=== PATIENT | female | born 1980 | race Caucasian/White ===

== ENCOUNTER → 2016-05-30 | Outpatient (CLI) | payer BC, OTHER ==
[~2016-05-30] MED LIST: ACET-1256 PO; ALBINS/ NEB; AMOX875T PO; CETI10TA10 PO; CHOL100010 PO; CHOL2000 PO; FERR325T PO; FLNIN/ INH; LEVO300T5 PO; LEVO50TA6 PO; MOME200A INH; OMEP20CA9 PO; PRED20TA PO; PRED50TA PO; SNG10 PO; TIOT1AER2 INH; VNTHFA/IN INH
[2016-05-30 17:50] LABS: BLOOD UREA NITROGEN 16 mg/dl (7-18); BUN/CREATININE RATIO 18.2 (10-20); CALCIUM 8.5 mg/dl (8.5-10.1); CARBON DIOXIDE 23 mmol/L (21-32); CHLORIDE 106 mmol/L (98-107); GLUCOSE 90 mg/dl (70-99); SODIUM 141 mmol/L (136-145)
== END | disposition home or self-care (01) ==
LOC: C.LABBFT 16:46
PROVIDERS: ATTEND Internal Medicine
DX: E03.9 Hypothyroidism, unspecified (principal)

== ENCOUNTER → 2016-06-20 | Outpatient (CLI) | payer BC, OTHER ==
[2016-06-20 13:52] LABS: FERRITIN 4.5 ng/ml (8.0-388.0)
[2016-06-27 23:42] LABS: IGA SERUM 277 mg/dL (81-463); TIS TRANS IGA 10 U/mL (<4)
[2016-06-30 09:23] LABS: ENDOMYSIAL IGA AB TC 15064 Negative (Negative)
== END | disposition home or self-care (01) ==
LOC: C.LAB1850 11:58
PROVIDERS: ATTEND Registered Nurse
DX: E03.9 Hypothyroidism, unspecified (principal); K90.0 Celiac disease

== ENCOUNTER → 2016-07-01 | Outpatient (CLI) | payer BC, OTHER ==
[2016-07-01 17:32] LABS: BASO % 0.4 %; BASO ABS # 0.04 K/uL (0-0.2); COMPLETE YES; EOS % 2.6 %; HEMATOCRIT 37.3 % (37-47); IG% 0.3 %; LYMPH % 31.3 %; LYMPH ABS # 3.24 K/uL (1.2-3.4); MEAN CORPUSCULAR HGB CONC 31.6 g/dl (32-36); MEAN PLATELET VOLUME 10.6 fL (7.4-10.4); MONO % 9.8 %; NEUT % 55.6 %; PLATELET COUNT 287 K/uL (130-400); RED BLOOD COUNT 4.72 M/uL (4.2-5.4); WHITE BLOOD COUNT 10.36 K/uL (4.8-10.8)
[2016-07-01 17:38] LABS: ALT/SGPT 22 U/L (12-78); AST/SGOT 8 U/L (15-37); BLOOD UREA NITROGEN 18 mg/dl (7-18); BUN/CREATININE RATIO 22.1 (10-20); CALCIUM 8.4 mg/dl (8.5-10.1); CARBON DIOXIDE 29 mmol/L (21-32); CHLORIDE 104 mmol/L (98-107); CREATININE 0.81 mg/dl (0.60-1.20); GLUCOSE 95 mg/dl (70-99); POTASSIUM 3.8 mmol/L (3.5-5.1); SODIUM 140 mmol/L (136-145)
[2016-07-01 17:47] LABS: URINE APPEARANCE CLEAR (CLEAR); URINE BILIRUBIN NEG (NEG); URINE COLOR YELLOW; URINE EPITHELIAL CELL AUTO 20-30 /lpf (0-5); URINE NITRITE NEG (NEG); URINE SPECIFIC GRAVITY 1.021 (1.000-1.030); UROBILINOGEN NEG (NEG); ZZUR CULT IF INDIC CLEAN CATCH NO
[2016-07-01 17:48] LABS: ALB/GLOB RATIO 0.8 (0.9-2); ALKALINE PHOSPHATASE 76 U/L (45-117)
[2016-07-01 17:49] LABS: MANUAL MICROSCOPIC REQUIRED? NO; REVIEW REQ? NO
== END | disposition home or self-care (01) ==
LOC: C.LABBFT 14:55
PROVIDERS: ATTEND Internal Medicine
DX: E03.9 Hypothyroidism, unspecified (principal); I10 Essential (primary) hypertension; R60.9 Edema, unspecified

== ENCOUNTER → 2016-08-07 | Outpatient (CLI) | payer BC, OTHER ==
[~2016-08-07] MED LIST changes: +FERR1TAB62 PO; -FERR325T PO; +LEVO300T31 PO; -LEVO300T5 PO
== END | disposition home or self-care (01) ==
LOC: C.PAPS 16:29
PROVIDERS: ATTEND Physician Assistant
DX: Z01.419 Encounter for gynecological examination (general) (routine) without abnormal findings (principal)

== ENCOUNTER → 2016-09-19 | Outpatient (CLI) | payer BC, OTHER ==
[2016-09-19 17:58] LABS: URINE APPEARANCE TURBID (CLEAR); URINE COLOR DK YELLOW; URINE EPITHELIAL CELL AUTO >30 /lpf (0-5); URINE NITRITE NEG (NEG); URINE PH 5.5 (4.5-7.5); URINE SPECIFIC GRAVITY 1.038 (1.000-1.030); UROBILINOGEN NEG (NEG)
[2016-09-19 18:18] LABS: MANUAL MICROSCOPIC REQUIRED? NO; REVIEW REQ? NO
[2016-09-19 18:20] LABS: URINE BILIRUBIN NEG (NEG)
== END | disposition home or self-care (01) ==
LOC: C.LABSPEC 17:22
PROVIDERS: ATTEND Physician Assistant
DX: R30.0 Dysuria (principal); N89.8 Other specified noninflammatory disorders of vagina

== ENCOUNTER → 2016-10-28 | Outpatient (CLI) | payer OTHER ==
[~2016-10-28] MED LIST changes: -AMOX875T PO; -CHOL2000 PO; -FERR1TAB62 PO; +FERR325T PO; -LEVO300T31 PO; +LEVO300T5 PO; -PRED50TA PO
[2016-10-28 19:18] LABS: URINE APPEARANCE CLEAR (CLEAR); URINE BILIRUBIN NEG (NEG); URINE COLOR YELLOW; URINE NITRITE NEG (NEG); URINE PH 6.5 (4.5-7.5); URINE SPECIFIC GRAVITY 1.013 (1.000-1.030); UROBILINOGEN NEG (NEG)
[2016-10-28 19:31] LABS: MANUAL MICROSCOPIC REQUIRED? NO; REVIEW REQ? NO
[2016-10-31 02:02] LABS: CHLAMYDIA TRACH RNA*** NOT DETECTED (NOT DETECTED); GC (NEIS GONORRHOEAE)RNA** NOT DETECTED (NOT DETECTED)
== END | disposition home or self-care (01) ==
LOC: C.LABBFT 10:35
PROVIDERS: ATTEND Physician Assistant Medical
DX: N76.0 Acute vaginitis (principal); R10.9 Unspecified abdominal pain

== ENCOUNTER → 2016-10-29 | Day surgery (SDC) | payer BC, OTHER ==
[~2016-10-29] VITALS: Ht 170.2 cm; Wt 157.7 kg
[~2016-10-29] MED LIST changes: +AMOX875T PO; +CHOL2000 PO; +FERR1TAB62 PO; -FERR325T PO; +LEVO300T31 PO; -LEVO300T5 PO; +LIDOCAINE HCL 2% 2 ML VIAL (20MG/ML) ONE; +PHENYLEPHRINE 100MCG/ML 5ML SYR ONE; +PRED50TA PO; +PROPOFOL IV EMULSION 10 MG/ML 20 ML VIAL IV ONE; +SODIUM CHLORIDE 0.9% 500ML 500 ML IV ONE
[2016-10-29 15:19] VITALS: Ht 170.2 cm; Wt 157.7 kg
--- NOTE | 2016-10-29 16:05 | Endo History and Physical ---
History & Physical Date of Service: Oct 29, 2016. Chief Complaint: Abdominal pain, family history of colon cancer (sister) Referring Physician: Ketty Ballard History of Present Illness 36 yo CF who presents for Colonoscopy secondary to family history of colon cancer (sister age 27). Past Medical History Asthma, Gastrointestinal Disorder, Reflux, High Cholesterol, Thyroid Disease, Other Past Surgical History Hx Cardiac Surgery: No Hx Internal Defibrillator: No Hx Pacemaker: No Hx Abdominal Surgery: Yes (gallbladder) Hx of Implantable Prosthesis: No Hx Post-Op Nausea and Vomiting: Yes Hx Cancer Surgery: No Hx Thoracic Surgery: No Hx Orthopedic: Yes (right wrist cyst removed) Hx Urinary Tract Surgery: No Family History Colon CA Social History Smoking Status: Former Smoker Hx Substance Use: No Hx Alcohol Use: Yes (holidays) Allergies Coded Allergies: Aspirin (Verified Allergy, Severe, ASTHMA ATTACK, 10/29/16) Ibuprofen (Verified Allergy, Severe, ASTHMA ATTACK, 10/29/16) Levofloxacin (Verified Allergy, Intermediate, body aches and pain, 10/29/16 ) Prochlorperazine (Verified Allergy, Intermediate, Agitated, itchy, hot, ) Tramadol (Verified Adverse Reaction, Unknown, Nausea/Vomiting, 10/29/16) Reported by PT. Current Medications Reported Home Medications Medications Dose Route/Sig Max Daily Dose Days Date Category Dose Instructions Prednisone 20 Mg Tab 20 Mg PO DIRECTED 04/13/16 Reported pt on tapering dose of prednisone presently today and tomorrow to take 20mg then decrease amt to 10mg Prilosec (Omeprazole) 20 Mg Cap 20 Mg PO QAM 04/05/16 Reported Montelukast Sodium (Montelukast Sod) 10 Mg Tab 10 Mg PO HS 04/05/16 Reported Levothyroxine Sodium 50 Mcg Tab 50 Mcg PO QAM 04/05/16 Reported Zyrtec (Cetirizine Hcl) 10 Mg Tab 10 Mg PO QAM 04/05/16 Reported Fluticasone Propionate 120 Sprays/6000 Mcg Inha 2 Sprays INH BID 04/05/16 Reported Spiriva Respimat (Tiotropium [place]) 1.25 Mcg/Act Aer 1 Puff INH DAILY 04/05/16 Reported Proventil 0.083% 2.5MG/3ML (Albuterol Sulf) 2.5 Mg/3 Ml Nebu 3 Ml NEB QID PRN 04/05/16 Reported Ventolin Hfa (Albuterol) 200 Puffs/09012 Mcg Aers 2 Puffs INH QID PRN 04/05/16 Reported Dulera 200/5 Mcg (Mometasone Furoate-Formoterol) 1 Aer Aer 2 Puff INH BID 04/05/16 Reported Vitamin D (Cholecalciferol) 1,000 Inter.unit Tab 2,000 Inter.unit PO DAILY 07/26/15 Reported Tylenol (Acetaminophen) 500 Mg Tab 1,000 Mg PO Q4H PRN 03/25/14 Reported Ferrous Sulfate 325 Mg Tab 325 Mg PO QPM 10/12/13 Reported Levothyroxine Sodium 300 Mcg Tab 300 Mcg PO QAM 02/18/13 Reported Vital Signs Weight (Kilograms): 157.73 Height (Feet): 5 Height (Inches): 7 Date Time Temp Pulse Resp B/P (MAP) Pulse Ox O2 Delivery O2 Flow Rate FiO2 10/29/16 15:40 36.8 85 20 140/76 (97) 96 Room Air Physical Exam General Appearance: WD/WN, no apparent distress Respiratory/Chest: Auscultation: breath sounds normal Cardiovascular: Heart Auscultation: RRR Abdomen: Bowel Sounds: normal Inspection & Palpation: soft, non-distended, no tenderness, guarding & rebound Assessment and Plan Assessment: 36 yo CF who presents for Colonoscopy secondary to family history of colon cancer (sister age 27). Plan: Proceed with colonoscopy.
--- NOTE | 2016-10-29 16:22 | Discharge Instructions ---
Endoscopy Patient Instructions Date / Procedure(s) Performed Oct 29, 2016. Colonoscopy Allergy Information Coded Allergies: Aspirin (Verified Allergy, Severe, ASTHMA ATTACK, 10/29/16) Ibuprofen (Verified Allergy, Severe, ASTHMA ATTACK, 10/29/16) Levofloxacin (Verified Allergy, Intermediate, body aches and pain, 10/29/16 ) Prochlorperazine (Verified Allergy, Intermediate, Agitated, itchy, hot, ) Tramadol (Verified Adverse Reaction, Unknown, Nausea/Vomiting, 10/29/16) Reported by PT. Discharge Date / Findings Oct 29, 2016. Colon polyp Diverticulosis Internal hemorrhoids Medication Instructions OK to resume all medications today as prescribed Reported Home Medications Medications Dose Route/Sig Max Daily Dose Days Date Category Dose Instructions Prednisone 20 Mg Tab 20 Mg PO DIRECTED 04/13/16 Reported pt on tapering dose of prednisone presently today and tomorrow to take 20mg then decrease amt to 10mg Prilosec (Omeprazole) 20 Mg Cap 20 Mg PO QAM 04/05/16 Reported Montelukast Sodium (Montelukast Sod) 10 Mg Tab 10 Mg PO HS 04/05/16 Reported Levothyroxine Sodium 50 Mcg Tab 50 Mcg PO QAM 04/05/16 Reported Zyrtec (Cetirizine Hcl) 10 Mg Tab 10 Mg PO QAM 04/05/16 Reported Fluticasone Propionate 120 Sprays/6000 Mcg Inha 2 Sprays INH BID 04/05/16 Reported Spiriva Respimat (Tiotropium [place]) 1.25 Mcg/Act Aer 1 Puff INH DAILY 04/05/16 Reported Proventil 0.083% 2.5MG/3ML (Albuterol Sulf) 2.5 Mg/3 Ml Nebu 3 Ml NEB QID PRN 04/05/16 Reported Ventolin Hfa (Albuterol) 200 Puffs/50503 Mcg Aers 2 Puffs INH QID PRN 04/05/16 Reported Dulera 200/5 Mcg (Mometasone Furoate-Formoterol) 1 Aer Aer 2 Puff INH BID 04/05/16 Reported Vitamin D (Cholecalciferol) 1,000 Inter.unit Tab 2,000 Inter.unit PO DAILY 07/26/15 Reported Tylenol (Acetaminophen) 500 Mg Tab 1,000 Mg PO Q4H PRN 03/25/14 Reported Ferrous Sulfate 325 Mg Tab 325 Mg PO QPM 10/12/13 Reported Levothyroxine Sodium 300 Mcg Tab 300 Mcg PO QAM 02/18/13 Reported Provider Instructions Activity Restrictions - No exercising or heavy lifting for 24 hours. - Do not drink alcohol the day of the procedure. - Do not drive a car or operate machinery until the day after the procedure. - Do not make any important decisions or sign important papers in 24 hours after the procedure. Following Day: - Return to full activity which may include returning to work/school. Diet Start your diet with liquids and light foods (jello, soup, juice, toast). Then eat your usual diet if not nauseated. Treatment For Common After Affects For mild abdominal pain, bloating, or excessive gas: - Rest - Eat lightly - Lie on right side Follow-Up Information Follow-up with Ketty Ballard as scheduled Anesthesia Information What You Should Know You have had a procedure that required some medicine to reduce anxiety and discomfort. This treatment is called moderate sedation. After receiving the treatment, you may be sleepy, but you will be able to breathe on your own. The effects of the treatment may last for several hours. Follow these instructions along with Activity/Diet recommendations noted above: * Do NOT do anything where dizziness or clumsiness would be dangerous. * Rest quietly at home today, then you can be up and about tomorrow. * Have a responsible person stay with you the rest of today. * You may have had an I.V. today. If so, you may take the dressing off later today. Recommendations Call your doctor if: * Trouble breathing * Continuous vomiting for more than 24 hours * Temperature above 101 degrees * Severe abdominal pain or bloating * Pain not relieved by pain medicine ordered * There is increased drainage or redness from any incision * A large amount of rectal bleeding greater than 2-3 tablespoons. (If you had a polyp/s removed or have hemorrhoids, a small amount of blood - from the rectum is to be expected.) * You have any unanswered questions or concerns. IN THE EVENT OF A SERIOUS EMERGENCY, GO TO THE NEAREST EMERGENCY ROOM Your discharge instructions were prepared by provider Zion Alvarado. Patient Instructions Signature Page Mustapha Mcnally Patient (or Guardian) Signature/Date: I have read and understand the instructions given to me by my caregivers. Caregiver/RN/Doctor Signature/Date: The above-named patient and/or guardian has received patient instructions on this date. + Original Patient Signature Page (only) stays with chart. Please make copy for patient.
--- NOTE | 2016-10-29 16:25 | GI REPORT ---
Procedure Date: 10/29/2016 3:55 PM Procedure: Colonoscopy Indications: Family history of colon cancer in a first-degree relative Medicines: Monitored Anesthesia Care Complications: No immediate complications. Estimated Blood Loss: Estimated blood loss: none. Procedure: Pre-Anesthesia Assessment: - Prior to the procedure, a History and Physical was performed, and patient medications and allergies were reviewed. The patient's tolerance of previous anesthesia was also reviewed. The risks and benefits of the procedure and the sedation options and risks were discussed with the patient. All questions were answered, and informed consent was obtained. Prior Anticoagulants: The patient has taken no previous anticoagulant or antiplatelet agents. ASA Grade Assessment: II - A patient with mild systemic disease. After reviewing the risks and benefits, the patient was deemed in satisfactory condition to undergo the procedure. After I obtained informed consent, the scope was passed under direct vision. Throughout the procedure, the patient's blood pressure, pulse, and oxygen saturations were monitored continuously. The Scope was introduced through the anus and advanced to the terminal ileum. The colonoscopy was performed without difficulty. The patient tolerated the procedure well. The quality of the bowel preparation was good. The terminal ileum, ileocecal valve, appendiceal orifice, and rectum were photographed. Findings: A 5 mm polyp was found in the sigmoid colon. The polyp was sessile. The polyp was removed with a hot snare. Resection and retrieval were complete. Multiple small-mouthed diverticula were found in the sigmoid colon. Non-bleeding internal hemorrhoids were found during retroflexion. The hemorrhoids were small. Impression: - One 5 mm polyp in the sigmoid colon, removed with a hot snare. Resected and retrieved. - Diverticulosis in the sigmoid colon. - Non-bleeding internal hemorrhoids. Recommendation: - Resume previous diet. - Continue present medications. - Repeat colonoscopy for surveillance based on pathology results. - Return to primary care physician as previously scheduled. Zion Alvarado DO 10/29/2016 4:24:53 PM This report has been signed electronically. Note Initiated On: 10/29/2016 3:55 PM I attest to the content of the Intraoperative Record and orders documented therein, exceptions below
[2016-10-29 16:53] VITALS: BP 138/71; PULSE 69; O2SAT 100
--- NOTE | 2016-10-29 16:57 | Anesthesiology Progress Note ---
Anesthesia Post Op Note Date & Time Oct 29, 2016 at 16:56 Vital Signs Pain Intensity: 0 Vital Signs Past 12 Hours Date Time Temp Pulse Resp B/P (MAP) Pulse Ox O2 Delivery O2 Flow Rate FiO2 10/29/16 16:53 69 16 138/71 (93) 100 Room Air 10/29/16 16:38 82 16 113/76 (88) 99 Room Air 10/29/16 16:23 79 16 103/45 (64) 98 Room Air 10/29/16 15:40 36.8 85 20 140/76 (97) 96 Room Air Notes Mental Status: alert / awake / arousable, participated in evaluation Pt Amnestic to Procedure: Yes Nausea / Vomiting: adequately controlled Pain: adequately controlled Airway Patency, RR, SpO2: stable & adequate BP & HR: stable & adequate Hydration State: stable & adequate Anesthetic Complications: no major complications apparent
== END | disposition home or self-care (01) ==
LOC: C.GI 15:03
PROVIDERS: ATTEND Internal Medicine
DX: Z12.11 Encounter for screening for malignant neoplasm of colon (principal); D12.5 Benign neoplasm of sigmoid colon; K57.30 Diverticulosis of large intestine without perforation or abscess without bleeding; K64.8 Other hemorrhoids; Z80.0 Family history of malignant neoplasm of digestive organs; E78.00 Pure hypercholesterolemia, unspecified; K21.9 Gastro-esophageal reflux disease without esophagitis; J45.909 Unspecified asthma, uncomplicated; E07.9 Disorder of thyroid, unspecified; Z87.891 Personal history of nicotine dependence; Z79.899 Other long term (current) drug therapy

== ENCOUNTER 2016-11-09 20:05 | Emergency (ER) | payer OTHER ==
[~2016-11-09] VITALS: Ht 170.2 cm; Wt 158.6 kg
[~2016-11-09 20:05] MED LIST changes: -AMOX875T PO; -CHOL2000 PO; -FERR1TAB62 PO; +FERR325T PO; -LEVO300T31 PO; +LEVO300T5 PO; -LIDOCAINE HCL 2% 2 ML VIAL (20MG/ML) ONE; -PHENYLEPHRINE 100MCG/ML 5ML SYR ONE; -PRED50TA PO; -PROPOFOL IV EMULSION 10 MG/ML 20 ML VIAL IV ONE; -SODIUM CHLORIDE 0.9% 500ML 500 ML IV ONE
[2016-11-09 20:07] VITALS: TEMP 36.7; Ht 170.2 cm; Wt 158.6 kg
[2016-11-09] MEDS ORDERED: SODIUM CHLORIDE 0.9% 1000ML 500 ML IV STA (20:31)
[2016-11-09] MEDS ORDERED: CHOL2000 PO (20:40)
--- NOTE | 2016-11-09 20:45 | EMERGENCY ROOM VISIT NOTE ---
History Report prepared by Carlitos: José Manuel Lara Under the Supervision of: Dr. Mynor Otero M.D. First contact with patient: 20:25 Chief Complaint: CHEST PAIN Stated Complaint: PAIN AND TIGHTENING IN CHEST Nursing Triage Summary: patient c/o left sided chest discomfort since yesterday that radiates towards her neck. patient states she has a hx of GERD and took tums yesterday but chest pain was not relieved. History of Present Illness The patient is a 36 year old female who presents to the Emergency Room with complaints of waxing and waning chest pain beginning 8.5 hours ago. Her pain radiates into her neck and she rates it as a 5/10 in severity. Her pain is worsened with physical activity. The patient has no history of blood clots. She has a history of GERD, but states that her current symptoms feel somewhat different. She notes that she had had a pain in her right calf that has radiated upward to the back of her knee beginning a month ago. The patient also complains of heart palpitations. She drove to [place] last week, but otherwise denies any recent long travel by car or plane. Source of History: patient Onset: 8.5 hours ago Position: chest Symptom Intensity: 5/10 Timing: waxes/wanes Modifying Factors (Worsening): other (physical activity) Note: The patient also complains of heart palpitations and pain radiating into her neck. Review of Systems See HPI for pertinent positives & negatives. A total of 10 systems reviewed and were otherwise negative. Past Medical & Surgical Medical Problems: (1) Acute abdominal pain (2) Acute abdominal pain (3) Acute sinusitis (4) Asthma (5) Asthma exacerbation (6) Asthma exacerbation (7) Cellulitis of scalp (8) Chest pain, non-cardiac (9) Cholecystectomy (10) Folliculitis (11) Foreign body of fourth finger, right (12) Gastritis (13) Gastritis (14) H. pylori infection (15) Headache (16) Headache (17) Hypothyroidism (18) Insect bite (19) Leg pain, right (20) Lower extremity pain, right (21) MORBID OBESITY (22) Musculoskeletal pain (23) Non-cardiac chest pain (24) Occipital lymphadenitis (25) Pansinusitis (26) Right leg pain (27) sinus surgery (28) Sinusitis (29) Sinusitis (30) Vomiting and diarrhea Family History Diabetes mellitus FHx: cancer FHx: gallbladder disease Hypertension Kidney disease Social History Smoking Status: Never Smoker Alcohol Use: none Drug Use: none Marital Status: Housing Status: lives with family Occupation Status: employed Current/Historical Medications Scheduled Cetirizine Hcl (Zyrtec), 10 MG PO QAM Cholecalciferol (Vitamin D3), 2,000 CAP PO DAILY Ferrous Sulfate (Ferrous Sulfate), 325 MG PO QPM Fluticasone Propionate (Fluticasone Propionate), 2 SPRAYS INH BID Levothyroxine Sodium (Levothyroxine Sodium), 300 MCG PO QAM Levothyroxine Sodium (Levothyroxine Sodium), 50 MCG PO QAM Mometasone Furoate-Formoterol (Dulera 200/5 Mcg), 2 PUFF INH BID Montelukast Sod (Montelukast Sodium), 10 MG PO HS Omeprazole (Prilosec), 20 MG PO QAM Tiotropium [place] (Spiriva Respimat), 1 PUFF INH DAILY Scheduled PRN Acetaminophen (Tylenol), 1,000 MG PO Q4H PRN for Pain or Fever Albuterol Hfa (Ventolin Hfa), 2 PUFFS INH QID PRN for Asthma Symptoms Albuterol Sulf (Proventil 0.083% 2.5MG/3ML), 3 ML NEB QID PRN for SOB/Wheezing Allergies Coded Allergies: Aspirin (Verified Allergy, Severe, ASTHMA ATTACK, 11/09/16) Ibuprofen (Verified Allergy, Severe, ASTHMA ATTACK, 11/09/16) Levofloxacin (Verified Allergy, Intermediate, body aches and pain, 11/09/16) Prochlorperazine (Verified Allergy, Intermediate, Agitated, itchy, hot, 11/09/16) Tramadol (Verified Adverse Reaction, Unknown, Nausea/Vomiting, 11/09/16) Reported by PT. Physical Exam Vital Signs Date Time Temp Pulse Resp B/P (MAP) Pulse Ox O2 Delivery O2 Flow Rate FiO2 11/09/16 22:19 78 20 134/70 99 11/09/16 21:30 65 20 134/67 98 Room Air 11/09/16 20:40 73 11/09/16 20:17 Room Air 11/09/16 20:07 36.7 71 20 152/91 98 Room Air Physical Exam GENERAL: Patient is in no acute distress. HEENT: No acute trauma, normocephalic atraumatic, mucous membranes moist, no nasal congestion, no scleral icterus. NECK: No stridor, no adenopathy, no meningismus, trachea is midline. LUNGS: Clear to auscultation bilaterally, no wheeze, no rhonchi, breath sounds equal. HEART: Without murmurs gallops or rubs, regular rate and rhythm. CHEST: Very mildly tender to the left chest-wall. ABDOMEN: Soft, nontender, bowel sounds positive, no hernias, no peritonitis. EXTREMITIES: No cyanosis or edema, full range of motion of all the joints without pain or difficulty, no signs for acute trauma. NEUROLOGIC: Oriented x 3, no acute motor or sensory deficits, no focal weakness. SKIN: No rash, no jaundice, no diaphoresis. Medical Decision & Procedures ER Provider Diagnostic Interpretation: Radiology results as stated below per my review and radiologist interpretation: SINGLE VIEW CHEST FINDINGS: An AP, portable, upright chest radiograph is compared to study dated 01/19/2016. The examination is degraded by portable technique and large body habitus. The cardiomediastinal silhouette is unremarkable. The lungs and pleural spaces are clear. No pneumothorax is seen. The bony thorax is grossly intact. IMPRESSION: No active disease in the chest. Electronically signed by: Mynor Pinto M.D. ULTRASOUND RIGHT LOWER EXTREMITY VENOUS FINDINGS: There is no sonographic evidence of deep venous thrombosis identified in the right lower extremity. The common femoral, superficial femoral, and popliteal veins are patent and normally compressible. The greater saphenous vein and the profunda femoris vein at the junction with the common femoral vein are clear. The visualized calf veins are patent. IMPRESSION: There is no sonographic evidence of deep venous thrombosis identified in the right lower extremity. Electronically signed by: Mynor Pinto M.D. Laboratory Results 11/09/16 20:30 11/09/16 20:30 Test 11/09/16 20:30 11/09/16 20:38 Red Blood Count 4.66 M/uL (4.2-5.4) Mean Corpuscular Volume 76.4 fL (80-100) Mean Corpuscular Hemoglobin 24.2 pg (25-34) Mean Corpuscular Hemoglobin Concent 31.7 g/dl (32-36) RDW Standard Deviation 42.4 fL (36.4-46.3) RDW Coefficient of Variation 15.2 % (11.5-14.5) Mean Platelet Volume 10.6 fL (7.4-10.4) Anion Gap 8.0 mmol/L (3-11) Est Creatinine Clear Calc Drug Dose 141.2 ml/min Estimated GFR () 98.0 Estimated GFR (Non- 84.6 BUN/Creatinine Ratio 16.7 (10-20) Calcium Level 8.6 mg/dl (8.5-10.1) Troponin I < 0.015 ng/ml (0-0.045) Bedside D-Dimer 310 ng/mlFEU (0-450) Laboratory results reviewed by me. Medications Administered Medications (Trade) Dose Ordered Sig/Zaida Route Start Time Stop Time Status Last Admin Dose Admin Sodium Chloride 500 ml @ 999 mls/hr Q31M STAT IV 11/09/16 20:31 11/09/16 21:01 DC 11/09/16 20:31 999 MLS/HR Ranitidine HCl (zANTac TAB) 150 mg NOW ONCE PO 11/09/16 21:45 11/09/16 21:46 DC 11/09/16 21:42 150 MG Morphine Sulfate (MoRPHine SULFATE INJ) 4 mg NOW STAT IV 11/09/16 21:34 11/09/16 21:36 DC 11/09/16 21:34 4 MG Al Hydroxide/Mg Hydroxide (Maalox Susp) 30 ml STK-MED ONCE .ROUTE 11/09/16 21:38 11/09/16 21:39 DC 11/09/16 21:38 30 ML Lidocaine HCl (Viscous Lidocaine 2% Soln) 20 ml STK-MED ONCE .ROUTE 11/09/16 21:38 11/09/16 21:39 DC 11/09/16 21:38 20 ML ECG Indication: chest pain Rate (beats per minute): 62 Rhythm: normal sinus Findings: no acute ischemic change, no ectopy ED Course 2025: The patient was evaluated in room B4B. A complete history and physical exam was performed. 2030: Ordered Sodium Chloride 500 ml @ 999 mls/hr IV. 2133: Ordered Morphine Sulfate 4 mg IV, GI Cocktail 24 mL PO. 2144: Ordered Zantac Tab 150 mg PO. 2210: Reevaluated the patient. Discussed results and discharge instructions: she verbalized understanding and agreement. The patient is ready for discharge. Medical Decision The patient is a 36 year old female who presents to the ED with complaints of chest pain. Differential diagnoses considered include musculoskeletal pain, PE , aortic dissection, pneumothorax, pneumonia, and [place]. There is no leukocytosis or concerning anemia. No significant electrolyte abnormality or kidney failure. EKG shows a sinus rhythm, there is no acute ischemia. Cardiac enzyme testing times one is not consistent with acute cardiac injury. Chest x-ray shows no pneumonia, mediastinal widening or pneumothorax. D-dimer testing was negative. With a negative d-dimer and my low suspicion for PE, I will stop the workup for this diagnosis. Right leg ultrasound did not show evidence for DVT. The patient presents with some left-sided chest pain and right leg pain. She did have some mild discomfort with palpation across the left chest wall. Workup here is unrevealing. I suspect the pain is musculoskeletal. The patient was given medication for reflux, she has a long history of reflux. She was given a GI cocktail and oral Zantac. She received IV morphine for pain control. The patient was discharged. She can use heat to the chest wall. If she worsens or becomes short of breath, she can return. Tylenol was suggested for pain control. Impression Primary Impression: Left sided chest pain Scribe Attestation The scribe's documentation has been prepared under my direction and personally reviewed by me in its entirety. I confirm that the note above accurately reflects all work, treatment, procedures, and medical decision making performed by me. Departure Information Dispostion Home / Self-Care Referrals Ketty Ballard M.D. (PCP) Forms HOME CARE DOCUMENTATION FORM, IMPORTANT VISIT INFORMATION Patient Instructions My [facility] Additional Instructions heat to the sore area may help continue reflux meds--may add zantac for additional relief tylenol for pain rest return if worsening testing of the heart and lungs today was ok no clot by ultrasound or lab work
[2016-11-09 20:47] LABS: HEMATOCRIT 35.6 % (37-47); MEAN CELL VOLUME 76.4 fL (80-100); MEAN CORPUSCULAR HEMOGLOBIN 24.2 pg (25-34); MEAN CORPUSCULAR HGB CONC 31.7 g/dl (32-36); MEAN PLATELET VOLUME 10.6 fL (7.4-10.4); PLATELET COUNT 282 K/uL (130-400); RED BLOOD COUNT 4.66 M/uL (4.2-5.4); WHITE BLOOD COUNT 9.35 K/uL (4.8-10.8)
--- NOTE | 2016-11-09 20:53 | DIAGNOSTIC IMAGING REPORT ---
SINGLE VIEW CHEST CLINICAL HISTORY: Atypical chest pain. FINDINGS: An AP, portable, upright chest radiograph is compared to study dated 01/19/2016. The examination is degraded by portable technique and large body habitus. The cardiomediastinal silhouette is unremarkable. The lungs and pleural spaces are clear. No pneumothorax is seen. The bony thorax is grossly intact. IMPRESSION: No active disease in the chest. Electronically signed by: Mynor Pinto M.D. 11/09/2016 8:51 PM Dictated Date/Time: 11/09/2016 8:51 PM
[2016-11-09 21:10] LABS: BLOOD UREA NITROGEN 15 mg/dl (7-18); BUN/CREATININE RATIO 16.7 (10-20); CALCIUM 8.6 mg/dl (8.5-10.1); CARBON DIOXIDE 26 mmol/L (21-32); CHLORIDE 107 mmol/L (98-107); CREATININE 0.89 mg/dl (0.60-1.20); GLUCOSE 112 mg/dl (70-99); POTASSIUM 3.9 mmol/L (3.5-5.1); SODIUM 141 mmol/L (136-145)
--- NOTE | 2016-11-09 21:17 | DIAGNOSTIC IMAGING REPORT ---
ULTRASOUND RIGHT LOWER EXTREMITY VENOUS CLINICAL HISTORY: Right calf pain. COMPARISON STUDY: Right lower extremity venous ultrasound dated 07/26/2015. TECHNIQUE: Real-time, grayscale, and color Doppler sonography of the deep veins of the right lower extremity was performed from the inguinal crease to the calf. Compression and augmentation were utilized. FINDINGS: There is no sonographic evidence of deep venous thrombosis identified in the right lower extremity. The common femoral, superficial femoral, and popliteal veins are patent and normally compressible. The greater saphenous vein and the profunda femoris vein at the junction with the common femoral vein are clear. The visualized calf veins are patent. IMPRESSION: There is no sonographic evidence of deep venous thrombosis identified in the right lower extremity. Electronically signed by: Mynor Pinto M.D. 11/09/2016 9:15 PM Dictated Date/Time: 11/09/2016 9:15 PM
[2016-11-09] MEDS ORDERED: GI COCKTAIL PO STA (21:34)
[2016-11-09] MEDS ORDERED: MoRPHine SULFATE 4 MG/ML 1 ML CARP\\VIAL IV STA (21:34)
[2016-11-09] MEDS ORDERED: LIDOCAINE HCL 2% VISC SOLN 20 ML UDC ONE (21:38)
[2016-11-09] MEDS ORDERED: ALUMINUM/MAGNESIUM SUSP 30 ML UDC ONE (21:38)
[2016-11-09] MEDS ORDERED: RANITIDINE HCL 150 MG TAB PO ONE (21:45)
[2016-11-09 22:19] VITALS: BP 134/70; PULSE 78; O2SAT 99
== END 2016-11-09 22:20 | disposition home or self-care (01) ==
LOC: C.EDB 20:06
DX: R07.9 Chest pain, unspecified (principal); K21.9 Gastro-esophageal reflux disease without esophagitis; R00.2 Palpitations; J45.909 Unspecified asthma, uncomplicated; E03.9 Hypothyroidism, unspecified; E66.01 Morbid (severe) obesity due to excess calories; Z83.3 Family history of diabetes mellitus; Z82.49 Family history of ischemic heart disease and other diseases of the circulatory system

== ENCOUNTER 2016-11-26 22:02 | Emergency (ER) | payer OTHER ==
[~2016-11-26] VITALS: Ht 170.2 cm; Wt 146.6 kg
[~2016-11-26 22:02] MED LIST changes: -CHOL100010 PO; +CHOL2000 PO; -PRED20TA PO
[2016-11-26 22:04] VITALS: TEMP 36.7; Ht 170.2 cm; Wt 146.6 kg
[2016-11-26] MEDS ORDERED: ALBUT/IPRATROP 3MG/0.5MG NEB 3 ML VIAL INH STA (22:12)
[2016-11-26] MEDS ORDERED: PSEUDOEPHEDRINE HCL 30 MG TAB PO STA (22:15)
[2016-11-26] MEDS ORDERED: DEXAMETHASONE SOD INJ 10 MG/ML VIAL PO ONE (22:15)
--- NOTE | 2016-11-26 22:35 | DIAGNOSTIC IMAGING REPORT ---
CHEST 2 VIEWS ROUTINE CLINICAL HISTORY: Cough. Wheeze. COMPARISON STUDY: Chest radiograph November 19, 2016. FINDINGS: There is no pneumothorax or pleural effusion. Opacity within the medial right lung base is unchanged and likely reflects mediastinal fat. There is no evidence of pulmonary edema. No consolidation is present. The appearance of the chest is unchanged. IMPRESSION: No acute cardiopulmonary findings. Electronically signed by: Darren Ballard M.D. 11/26/2016 10:34 PM Dictated Date/Time: 11/26/2016 10:32 PM
[2016-11-26 22:43] VITALS: O2SAT 99
[2016-11-26] MEDS ORDERED: AMOXICIL/CLAVU 875MG HOME PACK PO ONE (22:45)
--- NOTE | 2016-11-26 22:46 | EMERGENCY ROOM VISIT NOTE ---
History First contact with patient: 22:07 Chief Complaint: COUGH Stated Complaint: PAIN IN CHEST FROM COUGHING,HEADACHE History of Present Illness The patient is a 36 year old female who presents to the Emergency Room with complaints of productive cough with yellow-green sputum, yellow-green rhinorrhea and sinus pain and congestion for the past several days. Patient states when she coughs she has pain in her lower rib cages. Patient states the pain is not constant. Patient states this is completely different from her last ER visit for chest pain a few weeks ago. Patient states the symptoms did resolve. Patient states she feels ill again like she is getting another sinus infection or bronchitis. Patient tried her inhaler and this did not help. Patient complains of subjective fever and chills but no temperature was taken. Patient denies chest pain, dyspnea, abdominal pain, neck stiffness, vomiting, diarrhea. She is tolerate by mouth fluids and food. Review of Systems See HPI for pertinent positives & negatives. A total of 10 systems reviewed and were otherwise negative. Past Medical/Surgical History Medical Problems: (1) Acute abdominal pain (2) Acute abdominal pain (3) Acute sinusitis (4) Asthma (5) Asthma exacerbation (6) Asthma exacerbation (7) Cellulitis of scalp (8) Chest pain, non-cardiac (9) Cholecystectomy (10) Folliculitis (11) Foreign body of fourth finger, right (12) Gastritis (13) Gastritis (14) H. pylori infection (15) Headache (16) Headache (17) Hypothyroidism (18) Insect bite (19) Leg pain, right (20) Lower extremity pain, right (21) MORBID OBESITY (22) Musculoskeletal pain (23) Non-cardiac chest pain (24) Occipital lymphadenitis (25) Pansinusitis (26) Right leg pain (27) sinus surgery (28) Sinusitis (29) Sinusitis (30) Vomiting and diarrhea Family History Diabetes mellitus FHx: cancer FHx: gallbladder disease Hypertension Kidney disease Social History Smoking Status: Former Smoker Alcohol Use: none Drug Use: none Marital Status: Housing Status: lives with family Occupation Status: employed Current/Historical Medications Scheduled Cetirizine Hcl (Zyrtec), 10 MG PO QAM Cholecalciferol (Vitamin D3), 2,000 CAP PO DAILY Ferrous Sulfate (Ferrous Sulfate), 325 MG PO QPM Fluticasone Propionate (Fluticasone Propionate), 2 SPRAYS INH BID Levothyroxine Sodium (Levothyroxine Sodium), 300 MCG PO QAM Levothyroxine Sodium (Levothyroxine Sodium), 50 MCG PO QAM Mometasone Furoate-Formoterol (Dulera 200/5 Mcg), 2 PUFF INH BID Montelukast Sod (Montelukast Sodium), 10 MG PO HS Omeprazole (Prilosec), 20 MG PO QAM Tiotropium [place] (Spiriva Respimat), 1 PUFF INH DAILY Scheduled PRN Acetaminophen (Tylenol), 1,000 MG PO Q4H PRN for Pain or Fever Albuterol Hfa (Ventolin Hfa), 2 PUFFS INH QID PRN for Asthma Symptoms Albuterol Sulf (Proventil 0.083% 2.5MG/3ML), 3 ML NEB QID PRN for SOB/Wheezing Physical Exam Vital Signs Date Time Temp Pulse Resp B/P (MAP) Pulse Ox O2 Delivery O2 Flow Rate FiO2 11/26/16 22:43 99 Room Air 11/26/16 22:14 96 Room Air 11/26/16 22:04 36.7 81 18 128/81 99 Room Air Physical Exam VITALS: Vitals are noted on the nurse's note and reviewed by myself. Vital signs stable. GENERAL: White female coughing with audible wheeze, in no acute distress, nondiaphoretic, well-developed well-nourished. SKIN: The skin was without rashes, erythema, edema, or bruising. There is no tenting of the skin. Capillary reflex less than 2 seconds. HEAD: Normocephalic atraumatic. EARS: External auditory canals clear, tympanic membranes pearly riojas without erythema or effusion bilaterally. EYES: Pupils equal round and reactive to light and accommodation. Conjunctivae without injection, sclerae without icterus. Extraocular movements intact. NOSE: Patent, turbinates without inflammation or discharge. Bilateral maxillary sinus tenderness. MOUTH: Mucous membranes moist. Pharynx without erythema or exudate. Uvula midline. Airway patent. Tongue does not deviate. NECK: Supple without nuchal rigidity. No lymphadenopathy. No thyromegaly. Cervical spine is nontender. No JVD. HEART: Regular rate and rhythm without murmurs gallops or rubs. LUNGS: Mild diffuse end expiratory wheezes, without rales or rhonchi. No dullness to percussion. No retractions or accessory muscle use. ABDOMEN: Positive bowel sounds x 4. Normal tympanic percussion. Soft, nontender, without masses or organomegaly. Duenas sign negative. No guarding or rebound tenderness. MUSCULOSKELETAL: No muscle atrophy, erythema, or edema noted. NEURO: Patient was alert and oriented to person place and time. Normal sensation to light and sharp touch. No focal neurological deficits. Medical Decision & Procedures Medications Administered Medications (Trade) Dose Ordered Sig/Zaida Route Start Time Stop Time Status Last Admin Dose Admin Albuterol/ Ipratropium (Duoneb) 3 ml NOW STAT INH 11/26/16 22:12 11/26/16 22:14 DC 11/26/16 22:39 3 ML Dexamethasone Sodium Phosphate (Decadron Inj) 10 mg NOW ONCE PO 11/26/16 22:15 11/26/16 22:16 DC 11/26/16 22:39 10 MG Pseudoephedrine HCl (Sudafed Tab) 60 mg NOW STAT PO 11/26/16 22:15 11/26/16 22:16 DC 11/26/16 22:38 60 MG ED Course Prior records/ancillary studies reviewed. Triage Nursing notes reviewed. Additional history obtained from the family. The patient's history was concerning for respiratory difficulties. Differential diagnosis: Etiologies such as infections, reactive airway disease, pneumonia, pneumothorax , COPD, CHF, cardiac ischemia, pulmonary embolism, musculoskeletal, gastrointestinal, as well as others were entertained. Physical examination: As above. ER treatment provided: Prednisone, Sudafed, nebulizer On reassessment the patient felt better. Diagnostic interpretation by me: Imaging studies: Chest x-ray as above. CHEST 2 VIEWS ROUTINE CLINICAL HISTORY: Cough. Wheeze. COMPARISON STUDY: Chest radiograph November 19, 2016. FINDINGS: There is no pneumothorax or pleural effusion. Opacity within the medial right lung base is unchanged and likely reflects mediastinal fat. There is no evidence of pulmonary edema. No consolidation is present. The appearance of the chest is unchanged. IMPRESSION: No acute cardiopulmonary findings. Electronically signed by: Darren Ballard M.D. This appears to be consistent with bronchitis with wheezing from asthma exacerbation and sinusitis. Patient had no signs of meningitis or pneumonia. She's been symptomatic for several days. I did start her on antibiotics. Patient was neurovascularly and neurologically intact. She felt much better after the above treatment. She is advised take medications as directed and to follow-up family care in a few days or here in the ER sooner for chest pain, difficulty breathing, high fevers, neck stiffness, worsening signs or symptoms or as needed. By the evaluation outlined above emergent etiologies such as CHF , cardiac ischemia, pulmonary embolism, pneumonia, pneumothorax, musculoskeletal, serious bacterial infections, as well as others were deemed relatively unlikely. The pt informed about the findings as listed above. All questions were answered and pleased with the treatment. Return instructions were outlined and the patient was discharged in stable condition. Outpatient prescription management: Augmentin, Prednisone Referral: The patient was referred back to their primary care physician for follow-up in 2 to 3 days for a recheck of the current condition. Medical Decision As above Medication Reconcilliation Current Medication List: was personally reviewed by me Blood Pressure Screening Patient's blood pressure: Normal blood pressure Impression Primary Impression: Acute maxillary sinusitis Additional Impression: Asthmatic bronchitis Departure Information Dispostion Home / Self-Care Condition GOOD Referrals Ketty Ballard M.D. (PCP) Patient Instructions My [facility] Additional Instructions Albuterol Inhaler: Take 2 puffs four times daily for five days, then as needed. Prednisone 50mg: Once daily until the prescription is finished. It is best to take this earlier in the day as some patients note occasional difficulty falling asleep when taken in the late evening. Augmentin 875 mg: Take one tablet twice a day for 10 days. All antibiotics can cause diarrhea. If this occurs and you feel worse or it does not resolve in 1-2 days follow up with your doctor or return to the Emergency Department as this could be signs of serious underlying problems. Any medication can cause an allergic reaction, stop the pills immediately and return to the ER for rash, hives, breathing difficulties, or swelling. Acetaminophen(Tylenol) may be used for fever or pain. Use 1000mg every six hours as needed. Avoid using more than 3000mg in a 24 hour period. Afrin nasal spray: 2-3 sprays to each nostril twice daily as needed for congestion. Do not use for more than 3-4 days because it can lead to worsening rebound congestion. Pseudoephedrine(Sudaphed): 30-60mg every 6 hours as needed for nasal congestion. Do not take this with other stimulant products or supplements. Rest and drink plenty of fluids. Avoid smoke/smoking, fumes, dust, or any triggers in the past that may have affected your breathing. Continue current medications. Return to the ER for chest pain, difficulty breathing, fevers, vomiting, worsening of your condition, or as needed. Follow up with your primary physician this week for a recheck of your current condition. Problem Qualifiers Primary Impression: Acute maxillary sinusitis Recurrence: recurrent Qualified Codes: J01.01 - Acute recurrent maxillary sinusitis Additional Impression: Asthmatic bronchitis Asthma severity: moderate persistent Asthma complication type: with acute exacerbation Qualified Codes: J45.41 - Moderate persistent asthma with (acute ) exacerbation
[2016-11-26] MEDS ORDERED: AMOX875T PO (22:48)
[2016-11-26] MEDS ORDERED: PRED50TA PO (22:48)
[2016-11-26 23:05] VITALS: BP 155/82; PULSE 83; O2SAT 98
== END 2016-11-26 23:05 | disposition home or self-care (01) ==
LOC: C.EDB 22:03
DX: J01.00 Acute maxillary sinusitis, unspecified (principal); J45.901 Unspecified asthma with (acute) exacerbation; E03.9 Hypothyroidism, unspecified; E66.01 Morbid (severe) obesity due to excess calories; Z87.891 Personal history of nicotine dependence; Z83.3 Family history of diabetes mellitus; Z82.49 Family history of ischemic heart disease and other diseases of the circulatory system; Z84.1 Family history of disorders of kidney and ureter

== ENCOUNTER 2017-06-08 10:15 | Emergency (ER) | payer OTHER ==
[~2017-06-08] VITALS: Ht 170.2 cm; Wt 154.0 kg
[~2017-06-08 10:15] MED LIST changes: +FERR1TAB62 PO; -FERR325T PO; +LEVO300T31 PO; -LEVO300T5 PO
[2017-06-08 10:32] VITALS: TEMP 36.7; Ht 170.2 cm; Wt 154.0 kg
[2017-06-08] MEDS ORDERED: ONDANSETRON INJ 2 MG/ML 2 ML VIAL IV STA ×2 (11:43→15:51)
[2017-06-08] MEDS ORDERED: HYDROCODONE/ACETAMIN 5/325MG TAB PO STA (12:01)
[2017-06-08 12:21] LABS: BASO % 0.4 %; BASO ABS # 0.06 K/uL (0-0.2); EOS ABS # 0.57 K/uL (0-0.5); HEMATOCRIT 35.9 % (37-47); HEMOGLOBIN 11.2 g/dL (12.0-16.0); IG# 0.06 K/uL (0.00-0.02); LYMPH % 30.8 %; LYMPH ABS # 4.38 K/uL (1.2-3.4); MEAN CELL VOLUME 74.5 fL (80-100); MEAN CORPUSCULAR HEMOGLOBIN 23.2 pg (25-34); MEAN CORPUSCULAR HGB CONC 31.2 g/dl (32-36); MEAN PLATELET VOLUME 9.9 fL (7.4-10.4); MONO % 8.3 %; MONO ABS # 1.18 K/uL (0.11-0.59); NEUT % 56.1 %; NEUT ABS # 7.98 K/uL (1.4-6.5); PLATELET COUNT 287 K/uL (130-400); RED CELL DISTRIBUTION WIDTH CV 16.4 % (11.5-14.5); RED CELL DISTRIBUTION WIDTH SD 44.8 fL (36.4-46.3); WHITE BLOOD COUNT 14.23 K/uL (4.8-10.8)
[2017-06-08 12:40] LABS: CALCIUM 8.4 mg/dl (8.5-10.1); CREATININE 0.78 mg/dl (0.60-1.20); POTASSIUM 3.8 mmol/L (3.5-5.1)
[2017-06-08 12:43] LABS: TOTAL PROTEIN 6.7 gm/dl (6.4-8.2)
--- NOTE | 2017-06-08 15:13 | DIAGNOSTIC IMAGING REPORT ---
PELVIC COMPLETE NON OB HISTORY: 36 years-old Female right pelvic pain acute right-sided pelvic pain COMPARISON: CTA 04/13/2016 TECHNIQUE: Multiple real-time sonogram images of the deep pelvic structures were obtained transabdominally and transvaginally assessing grayscale appearance, color and spectral flow. FINDINGS: TRANSABDOMINAL: Anteflexed uterus measures 10.9 x 5.4 x 7.0 cm. TRANSVAGINAL: There is a complex hypoechoic 1.3 x 0.9 x 0.8 cm lesion of the anterior cervix without internal vascularity identified. Endometrium measures 9 mm and appears homogeneous. The right ovary measures 3.5 x 3.9 x 3.1 cm and is unremarkable with arterial inflow. Cystic structure within the right ovary measures 2.1 x 2.4 x 2.1 cm suggesting dominant follicle within internal septation. The left ovary measures 3.4 x 2.0 x 2.2 cm and is unremarkable with arterial inflow documented. No significant free pelvic fluid. IMPRESSION: 1. Dominant right ovarian follicle. No evidence of ovarian torsion. 2. Complex hypoechoic 1.3 cm lesion of the cervix without internal vascularity identified is indeterminate. Differential considerations would include a complex nabothian cyst or less likely a cervical leiomyoma. 3. Normal appearance of the endometrium and left ovary. The above report was generated using voice recognition software. It may contain grammatical, syntax or spelling errors. Electronically signed by: Jatin Anton M.D. 06/08/2017 3:11 PM Dictated Date/Time: 06/08/2017 3:05 PM
[2017-06-08] MEDS ORDERED: OPTIRAY 320 IV PRN (15:45)
--- NOTE | 2017-06-08 15:45 | EMERGENCY ROOM VISIT NOTE ---
History First contact with patient: 11:52 Chief Complaint: ABDOMINAL PAIN Stated Complaint: LOWER STOMACH AND BACK PAIN, DIZZY Nursing Triage Summary: patient states she has had lower abdominal pain for the past couple days. pain feels like "menstural pains" denies n/v/d History of Present Illness The patient is a 36 year old female who presents to the Emergency Room with complaints of lower abdominal pain. The patient states that he has been intermittent over the past few days. She states it feels like "menstrual cramps ". The patient denies any associated nausea vomiting or diarrhea. The patient denies any constipation. She denies any urinary symptoms of frequency, urgency or dysuria. The patient does admit that sometimes the pain goes to her lower back. The patient denies any fever. The patient denies any abnormal vaginal discharge. She denies any history of ovarian cysts. Review of Systems 10 system review was performed and was negative unless stated otherwise history of present illness. Past Medical/Surgical History Medical Problems: (1) Acute abdominal pain (2) Acute abdominal pain (3) Acute sinusitis (4) Asthma (5) Asthma exacerbation (6) Asthma exacerbation (7) Cellulitis of scalp (8) Chest pain, non-cardiac (9) Cholecystectomy (10) Folliculitis (11) Foreign body of fourth finger, right (12) Gastritis (13) Gastritis (14) H. pylori infection (15) Headache (16) Headache (17) Hypothyroidism (18) Insect bite (19) Leg pain, right (20) Lower extremity pain, right (21) MORBID OBESITY (22) Musculoskeletal pain (23) Non-cardiac chest pain (24) Occipital lymphadenitis (25) Pansinusitis (26) Right leg pain (27) sinus surgery (28) Sinusitis (29) Sinusitis (30) Vomiting and diarrhea Family History Diabetes mellitus FHx: cancer FHx: gallbladder disease Hypertension Kidney disease Social History Smoking Status: Never Smoker Alcohol Use: none Drug Use: none Marital Status: Housing Status: lives with family Occupation Status: employed Current/Historical Medications Scheduled Cetirizine Hcl (Zyrtec), 10 MG PO QAM Cholecalciferol (Vitamin D3), 2,000 CAP PO DAILY Ferrous Sulfate (Ferrous Sulfate), 325 MG PO QPM Fluticasone Propionate (Fluticasone Propionate), 2 SPRAYS INH BID Levothyroxine Sodium (Levothyroxine Sodium), 300 MCG PO QAM Levothyroxine Sodium (Levothyroxine Sodium), 50 MCG PO QAM Mometasone Furoate-Formoterol (Dulera 200/5 Mcg), 2 PUFF INH BID Montelukast Sod (Montelukast Sodium), 10 MG PO HS Omeprazole (Prilosec), 20 MG PO QAM Tiotropium [place] (Spiriva Respimat), 1 PUFF INH DAILY Scheduled PRN Acetaminophen (Tylenol), 1,000 MG PO Q4H PRN for Pain or Fever Albuterol Hfa (Ventolin Hfa), 2 PUFFS INH QID PRN for Asthma Symptoms Albuterol Sulf (Proventil 0.083% 2.5MG/3ML), 3 ML NEB QID PRN for SOB/Wheezing Physical Exam Vital Signs Date Time Temp Pulse Resp B/P (MAP) Pulse Ox O2 Delivery O2 Flow Rate FiO2 06/08/17 10:32 36.7 68 18 139/85 98 Room Air Physical Exam GENERAL: 36-year-old female appears in no acute distress. MENTAL Status: Alert and oriented 3. MOUTH: Mucosa is moist NECK: Supple, no lymphadenopathy noted. No carotid bruits noted. LUNGS: Clear auscultation without wheezes rales or rhonchi. CARDIAC: Regular rate and rhythm without murmur. Pulses is full and equal throughout. BACK: No CVA tenderness noted. ABDOMEN: Positive bowel sounds all 4 quadrants. Soft, nontender to palpation in the right pelvic region otherwise nontender. Difficult to evaluate for organomegaly or masses secondary to patient's size. EXTREMITIES: No cyanosis or edema noted. Medical Decision & Procedures ER Provider Diagnostic Interpretation: PELVIC COMPLETE NON OB HISTORY: 36 years-old Female right pelvic pain acute right-sided pelvic pain COMPARISON: CTA 04/13/2016 TECHNIQUE: Multiple real-time sonogram images of the deep pelvic structures were obtained transabdominally and transvaginally assessing grayscale appearance, color and spectral flow. FINDINGS: TRANSABDOMINAL: Anteflexed uterus measures 10.9 x 5.4 x 7.0 cm. TRANSVAGINAL: There is a complex hypoechoic 1.3 x 0.9 x 0.8 cm lesion of the anterior cervix without internal vascularity identified. Endometrium measures 9 mm and appears homogeneous. The right ovary measures 3.5 x 3.9 x 3.1 cm and is unremarkable with arterial inflow. Cystic structure within the right ovary measures 2.1 x 2.4 x 2.1 cm suggesting dominant follicle within internal septation. The left ovary measures 3.4 x 2.0 x 2.2 cm and is unremarkable with arterial inflow documented. No significant free pelvic fluid. IMPRESSION: 1. Dominant right ovarian follicle. No evidence of ovarian torsion. 2. Complex hypoechoic 1.3 cm lesion of the cervix without internal vascularity identified is indeterminate. Differential considerations would include a complex nabothian cyst or less likely a cervical leiomyoma. 3. Normal appearance of the endometrium and left ovary. The above report was generated using voice recognition software. It may contain grammatical, syntax or spelling errors. Electronically signed by: Jatin Anton M.D. 06/08/2017 3:11 PM Dictated Date/Time: 06/08/2017 3:05 PM Laboratory Results 06/08/17 11:55 Red Blood Count 4.82, Mean Corpuscular Volume 74.5, Mean Corpuscular Hemoglobin 23.2, Mean Corpuscular Hemoglobin Concent 31.2, Mean Platelet Volume 9.9, Neutrophils (%) (Auto) 56.1, Lymphocytes (%) (Auto) 30.8, Monocytes (%) (Auto) 8.3, Eosinophils (%) (Auto) 4.0, Basophils (%) (Auto) 0.4, Neutrophils # (Auto) 7.98, Lymphocytes # (Auto) 4.38, Monocytes # (Auto) 1.18, Eosinophils # (Auto) 0.57, Basophils # (Auto) 0.06 06/08/17 11:55 Test 06/08/17 11:55 06/08/17 12:20 White Blood Count 14.23 K/uL (4.8-10.8) Red Blood Count 4.82 M/uL (4.2-5.4) Hemoglobin 11.2 g/dL (12.0-16.0) Hematocrit 35.9 % (37-47) Mean Corpuscular Volume 74.5 fL (80-100) Mean Corpuscular Hemoglobin 23.2 pg (25-34) Mean Corpuscular Hemoglobin Concent 31.2 g/dl (32-36) Platelet Count 287 K/uL (130-400) Mean Platelet Volume 9.9 fL (7.4-10.4) Neutrophils (%) (Auto) 56.1 % Lymphocytes (%) (Auto) 30.8 % Monocytes (%) (Auto) 8.3 % Eosinophils (%) (Auto) 4.0 % Basophils (%) (Auto) 0.4 % Neutrophils # (Auto) 7.98 K/uL (1.4-6.5) Lymphocytes # (Auto) 4.38 K/uL (1.2-3.4) Monocytes # (Auto) 1.18 K/uL (0.11-0.59) Eosinophils # (Auto) 0.57 K/uL (0-0.5) Basophils # (Auto) 0.06 K/uL (0-0.2) RDW Standard Deviation 44.8 fL (36.4-46.3) RDW Coefficient of Variation 16.4 % (11.5-14.5) Immature Granulocyte % (Auto) 0.4 % Immature Granulocyte # (Auto) 0.06 K/uL (0.00-0.02) Anion Gap 8.0 mmol/L (3-11) Est Creatinine Clear Calc Drug Dose 158.1 ml/min Estimated GFR () 115.0 Estimated GFR (Non- 99.2 BUN/Creatinine Ratio 23.1 (10-20) Calcium Level 8.4 mg/dl (8.5-10.1) Total Bilirubin 0.2 mg/dl (0.2-1) Aspartate Amino Transf (AST/SGOT) 7 U/L (15-37) Alanine Aminotransferase (ALT/SGPT) 20 U/L (12-78) Alkaline Phosphatase 76 U/L (45-117) Total Protein 6.7 gm/dl (6.4-8.2) Albumin 3.0 gm/dl (3.4-5.0) Globulin 3.7 gm/dl (2.5-4.0) Albumin/Globulin Ratio 0.8 (0.9-2) Lipase 161 U/L (73-393) Urine Color YELLOW Urine Appearance CLEAR (CLEAR) Urine pH 5.0 (4.5-7.5) Urine Specific [place] 1.027 (1.000-1.030) Urine Protein NEG (NEG) Urine Glucose (UA) NEG (NEG) Urine Ketones NEG (NEG) Urine Occult Blood NEG (NEG) Urine Nitrite NEG (NEG) Urine Bilirubin NEG (NEG) Urine Urobilinogen NEG (NEG) Urine Leukocyte Esterase NEG (NEG) Urine Test NEG (NEG) Medications Administered Medications (Trade) Dose Ordered Sig/Zaida Route Start Time Stop Time Status Last Admin Dose Admin Ondansetron HCl (Zofran Inj) 4 mg NOW STAT IV 06/08/17 11:43 06/08/17 11:45 DC 06/08/17 12:57 4 MG Acetaminophen/ Hydrocodone Bitart ([place] 5/325 Tab) 2 tab NOW STAT PO 06/08/17 12:01 06/08/17 12:04 DC 06/08/17 12:58 2 TAB ED Course Critical pathway had been initiated. The patient was evaluated. IV access was obtained. The patient was given [place] 5/325 mg 2 tablets by mouth for pain. The patient was also given Zofran 4 mg IV for associated nausea. CBC and differential, complete metabolic profile was ordered. Urinalysis was ordered. Urine dip for was negative. Urinalysis was negative. Labs are reviewed. Patient's white count was elevated at 14,000. Hemoglobin and hematocrit were slightly low. Pelvic ultrasound was ordered interpreted by the radiologist as above with ovarian follicles no evidence of torsion or ectopic . There is also a lesion noted on the cervix the patient was informed of all findings. The patient was informed that she will need to follow-up with [facility] for further evaluation. The patient verbalized understanding. The patient continued to be in pain and therefore was given morphine [address] of the abdomen and pelvis with IV and oral contrast was ordered to evaluate for appendicitis or diverticulitis since she now stated that she was told in the past that she has diverticulosis. The CT was pending at the end of my shift therefore the case was signed out to bernardino Taylor PA-C at the end of my shift.. Medical Decision Differential diagnosis include UTI, pyelonephritis, ureteral calculi, ovarian cyst, ectopic , ovarian torsion, , acute appendicitis, diverticulitis [place] Drug Monitoring Program Search Results: patient reviewed within database Medication Reconcilliation Current Medication List: was personally reviewed by me Impression Primary Impression: Abdominal pain Additional Impression: Cervical lesion Departure Information Dispostion Still a Patient Condition GOOD Referrals Elio, Ketty D., M.D. (PCP) Patient Instructions My [facility] Problem Qualifiers
[2017-06-08] MEDS ORDERED: MoRPHine SULFATE 10 MG/ML CARP/VIAL IV STA (15:46)
[2017-06-08] MEDS ORDERED: GI COCKTAIL PO STA (17:26)
[2017-06-08] MEDS ORDERED: ALUMINUM/MAGNESIUM SUSP 30 ML UDC ONE (17:44)
[2017-06-08] MEDS ORDERED: LIDOCAINE HCL 2% VISC SOLN 20 ML UDC ONE (17:44)
[2017-06-08 17:51] VITALS: BP 136/88; PULSE 75; O2SAT 95
--- NOTE | 2017-06-08 18:17 | DIAGNOSTIC IMAGING REPORT ---
ABD/PELVIS IV AND ORAL CONT CLINICAL HISTORY: 36 years-old Female presenting with right lower quadrant pain. TECHNIQUE: Multidetector CT of the abdomen and pelvis was performed after the administration of oral and intravenous contrast. IV contrast: 119 mL of Optiray 320. A dose lowering technique was used consistent with the principles of ALARA (as low as reasonably achievable). COMPARISON: 04/13/2016. CT DOSE (mGy.cm): The estimated cumulative dose is 2216.97 mGy.cm. FINDINGS: [employer] topogram: Cholecystectomy clips. Lung bases: Minimal basilar opacities, likely atelectasis. Normal heart size. No pericardial or pleural effusion. Liver: Normal morphology. Focal fatty sparing or perfusional variation along the gallbladder fossa. No liver lesion. Patent hepatic vasculature. Biliary: No intrahepatic or extrahepatic biliary ductal dilatation. Gallbladder surgically absent. Pancreas: Normal. Spleen: Normal. Adrenal glands: Normal. Kidneys and ureters: Normal. No hydronephrosis. Bladder: Normal. Pelvic organs: Uterus and ovaries normal. Bowel: Normal appendix. No bowel obstruction. Peritoneal cavity: No free fluid or intraperitoneal gas. Lymph nodes: No enlarged lymph nodes in the abdomen or pelvis. Vasculature: Aorta and IVC patent and normal in caliber. Abdominal wall: Normal. Musculoskeletal: Normal. IMPRESSION: 1. No acute intra-abdominal pathology. Specifically, no appendicitis. 2. Postsurgical changes of cholecystectomy. Electronically signed by: Wood Gray M.D. 06/08/2017 6:15 PM Dictated Date/Time: 06/08/2017 6:10 PM
--- NOTE | 2017-06-08 18:29 | EMERGENCY ROOM VISIT NOTE ---
History First contact with patient: 16:36 Chief Complaint: ABDOMINAL PAIN Stated Complaint: LOWER STOMACH AND BACK PAIN, DIZZY Nursing Triage Summary: patient states she has had lower abdominal pain for the past couple days. pain feels like "menstural pains" denies n/v/d History of Present Illness The patient is a 36 year old female who presents to the Emergency Room via private vehicle with complaints of "lower stomach and back pain, dizzy". Please refer to Janie Cisse PA-C note for history and physical, review of systems, and first portion of the patient's stay. The case was signed out to me at shift change pending CT scan of the abdomen and pelvis with IV and oral contrast. Review of Systems Please refer to Janie Cisse PA-C note for history and physical, review of systems, and first portion of the patient's stay. The case was signed out to me at shift change pending CT scan of the abdomen and pelvis with IV and oral contrast. Past Medical/Surgical History Medical Problems: (1) Acute abdominal pain (2) Acute abdominal pain (3) Acute sinusitis (4) Asthma (5) Asthma exacerbation (6) Asthma exacerbation (7) Cellulitis of scalp (8) Chest pain, non-cardiac (9) Cholecystectomy (10) Folliculitis (11) Foreign body of fourth finger, right (12) Gastritis (13) Gastritis (14) H. pylori infection (15) Headache (16) Headache (17) Hypothyroidism (18) Insect bite (19) Leg pain, right (20) Lower extremity pain, right (21) MORBID OBESITY (22) Musculoskeletal pain (23) Non-cardiac chest pain (24) Occipital lymphadenitis (25) Pansinusitis (26) Right leg pain (27) sinus surgery (28) Sinusitis (29) Sinusitis (30) Vomiting and diarrhea Family History Diabetes mellitus FHx: cancer FHx: gallbladder disease Hypertension Kidney disease Social History Smoking Status: Never Smoker Alcohol Use: none Drug Use: none Marital Status: Housing Status: lives with family Occupation Status: employed Current/Historical Medications Scheduled Cetirizine Hcl (Zyrtec), 10 MG PO QAM Cholecalciferol (Vitamin D3), 2,000 CAP PO DAILY Ferrous Sulfate (Ferrous Sulfate), 325 MG PO QPM Fluticasone Propionate (Fluticasone Propionate), 2 SPRAYS INH BID Levothyroxine Sodium (Levothyroxine Sodium), 300 MCG PO QAM Levothyroxine Sodium (Levothyroxine Sodium), 50 MCG PO QAM Mometasone Furoate-Formoterol (Dulera 200/5 Mcg), 2 PUFF INH BID Montelukast Sod (Montelukast Sodium), 10 MG PO HS Omeprazole (Prilosec), 20 MG PO QAM Tiotropium Igo (Spiriva Respimat), 1 PUFF INH DAILY Scheduled PRN Acetaminophen (Tylenol), 1,000 MG PO Q4H PRN for Pain or Fever Albuterol Hfa (Ventolin Hfa), 2 PUFFS INH QID PRN for Asthma Symptoms Albuterol Sulf (Proventil 0.083% 2.5MG/3ML), 3 ML NEB QID PRN for SOB/Wheezing Oxycodone Ir (Roxicodone Ir), 1-2 TAB PO Q4H PRN for Pain Physical Exam Vital Signs Date Time Temp Pulse Resp B/P (MAP) Pulse Ox O2 Delivery O2 Flow Rate FiO2 06/08/17 17:51 75 18 136/88 95 Room Air 06/08/17 16:59 77 18 120/64 97 Room Air 06/08/17 15:49 87 18 90/70 100 Room Air 06/08/17 10:32 36.7 68 18 139/85 98 Room Air Physical Exam Please refer to Janie Cisse PA-C note for history and physical, review of systems, and first portion of the patient's stay. The case was signed out to me at shift change pending CT scan of the abdomen and pelvis with IV and oral contrast. Medical Decision & Procedures ER Provider Diagnostic Interpretation: ABD/PELVIS IV AND ORAL CONT CLINICAL HISTORY: 36 years-old Female presenting with right lower quadrant pain. TECHNIQUE: Multidetector CT of the abdomen and pelvis was performed after the administration of oral and intravenous contrast. IV contrast: 119 mL of Optiray 320. A dose lowering technique was used consistent with the principles of ALARA (as low as reasonably achievable). COMPARISON: 04/13/2016. CT DOSE (mGy.cm): The estimated cumulative dose is 2216.97 mGy.cm. 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 Lung bases: Minimal basilar opacities, likely atelectasis. Normal heart size. No pericardial or pleural effusion. Liver: Normal morphology. Focal fatty sparing or perfusional variation along the gallbladder fossa. No liver lesion. Patent hepatic vasculature. Biliary: No intrahepatic or extrahepatic biliary ductal dilatation. Gallbladder surgically absent. Pancreas: Normal. Spleen: Normal. Adrenal glands: Normal. Kidneys and ureters: Normal. No hydronephrosis. Bladder: Normal. Pelvic organs: Uterus and ovaries normal. Bowel: Normal appendix. No bowel obstruction. Peritoneal cavity: No free fluid or intraperitoneal gas. Lymph nodes: No enlarged lymph nodes in the abdomen or pelvis. Vasculature: Aorta and IVC patent and normal in caliber. Abdominal wall: Normal. Musculoskeletal: Normal. IMPRESSION: 1. No acute intra-abdominal pathology. Specifically, no appendicitis. 2. Postsurgical changes of cholecystectomy. Electronically signed by: Wood Gray M.D. 06/08/2017 6:15 PM Dictated Date/Time: 06/08/2017 6:10 PM Laboratory Results 06/08/17 11:55 Red Blood Count 4.82, Mean Corpuscular Volume 74.5, Mean Corpuscular Hemoglobin 23.2, Mean Corpuscular Hemoglobin Concent 31.2, Mean Platelet Volume 9.9, Neutrophils (%) (Auto) 56.1, Lymphocytes (%) (Auto) 30.8, Monocytes (%) (Auto) 8.3, Eosinophils (%) (Auto) 4.0, Basophils (%) (Auto) 0.4, Neutrophils # (Auto) 7.98, Lymphocytes # (Auto) 4.38, Monocytes # (Auto) 1.18, Eosinophils # (Auto) 0.57, Basophils # (Auto) 0.06 06/08/17 11:55 Test 06/08/17 11:55 06/08/17 12:20 White Blood Count 14.23 K/uL (4.8-10.8) Red Blood Count 4.82 M/uL (4.2-5.4) Hemoglobin 11.2 g/dL (12.0-16.0) Hematocrit 35.9 % (37-47) Mean Corpuscular Volume 74.5 fL (80-100) Mean Corpuscular Hemoglobin 23.2 pg (25-34) Mean Corpuscular Hemoglobin Concent 31.2 g/dl (32-36) Platelet Count 287 K/uL (130-400) Mean Platelet Volume 9.9 fL (7.4-10.4) Neutrophils (%) (Auto) 56.1 % Lymphocytes (%) (Auto) 30.8 % Monocytes (%) (Auto) 8.3 % Eosinophils (%) (Auto) 4.0 % Basophils (%) (Auto) 0.4 % Neutrophils # (Auto) 7.98 K/uL (1.4-6.5) Lymphocytes # (Auto) 4.38 K/uL (1.2-3.4) Monocytes # (Auto) 1.18 K/uL (0.11-0.59) Eosinophils # (Auto) 0.57 K/uL (0-0.5) Basophils # (Auto) 0.06 K/uL (0-0.2) RDW Standard Deviation 44.8 fL (36.4-46.3) RDW Coefficient of Variation 16.4 % (11.5-14.5) Immature Granulocyte % (Auto) 0.4 % Immature Granulocyte # (Auto) 0.06 K/uL (0.00-0.02) Anion Gap 8.0 mmol/L (3-11) Est Creatinine Clear Calc Drug Dose 158.1 ml/min Estimated GFR () 115.0 Estimated GFR (Non- 99.2 BUN/Creatinine Ratio 23.1 (10-20) Calcium Level 8.4 mg/dl (8.5-10.1) Total Bilirubin 0.2 mg/dl (0.2-1) Aspartate Amino Transf (AST/SGOT) 7 U/L (15-37) Alanine Aminotransferase (ALT/SGPT) 20 U/L (12-78) Alkaline Phosphatase 76 U/L (45-117) Total Protein 6.7 gm/dl (6.4-8.2) Albumin 3.0 gm/dl (3.4-5.0) Globulin 3.7 gm/dl (2.5-4.0) Albumin/Globulin Ratio 0.8 (0.9-2) Lipase 161 U/L (73-393) Urine Color YELLOW Urine Appearance CLEAR (CLEAR) Urine pH 5.0 (4.5-7.5) Urine Specific [place] 1.027 (1.000-1.030) Urine Protein NEG (NEG) Urine Glucose (UA) NEG (NEG) Urine Ketones NEG (NEG) Urine Occult Blood NEG (NEG) Urine Nitrite NEG (NEG) Urine Bilirubin NEG (NEG) Urine Urobilinogen NEG (NEG) Urine Leukocyte Esterase NEG (NEG) Urine Test NEG (NEG) Medications Administered Medications (Trade) Dose Ordered Sig/Zaida Route Start Time Stop Time Status Last Admin Dose Admin Ondansetron HCl (Zofran Inj) 4 mg NOW STAT IV 06/08/17 11:43 06/08/17 11:45 DC 06/08/17 12:57 4 MG Acetaminophen/ Hydrocodone Bitart ([place] 5/325 Tab) 2 tab NOW STAT PO 06/08/17 12:01 06/08/17 12:04 DC 06/08/17 12:58 2 TAB Morphine Sulfate (MoRPHine SULFATE INJ) 6 mg NOW STAT IV 06/08/17 15:46 06/08/17 15:47 DC 06/08/17 15:57 6 MG Ondansetron HCl (Zofran Inj) 4 mg NOW STAT IV 06/08/17 15:51 06/08/17 15:52 DC 06/08/17 15:56 4 MG Lidocaine HCl (Viscous Lidocaine 2% Soln) 20 ml STK-MED ONCE .ROUTE 06/08/17 17:44 06/08/17 17:45 DC 06/08/17 17:44 20 ML Al Hydroxide/Mg Hydroxide (Maalox Susp) 30 ml STK-MED ONCE .ROUTE 06/08/17 17:44 06/08/17 17:45 DC 06/08/17 17:44 30 ML Medical Decision Please refer to Janie Cisse PA-C note for history and physical, review of systems, and first portion of the patient's stay. The case was signed out to me at shift change pending CT scan of the abdomen and pelvis with IV and oral contrast. Patient was evaluated, and CT scan reveals no acute process. She is to follow-up regarding the ultrasound. She did develop chest pain during her stay and had an EKG performed which reveals normal sinus rhythm. I suspect this is likely reflux as she notes that she was drinking the contrast and lying flat when she experienced this. When she sat up she felt much better. She was given a GI cocktail and felt much better. After she finished the oral contrast for the CT and stop drinking of her period of time she felt much better. I suspect reflux and not cardiac nature. She appears stable for outpatient management. She was educated upon management, educated upon worrisome symptoms which to return, will be given a short prescription of pain medication, and was discharged home in good condition. No red flags in the [place] drug monitoring system. In evaluation and treatment of this patient following differential diagnoses were entertained: Appendicitis, ovarian torsion, epiploic appendage iritis, diverticulitis, bowel obstruction, among others. Impression Primary Impression: Abdominal pain Additional Impression: Cervical lesion Departure Information Dispostion Home / Self-Care Condition GOOD Prescriptions Oxycodone Ir (Roxicodone Ir) 5 Mg Tab 1-2 TAB PO Q4H Y for Pain, #15 TAB For Initial Treatment Prov: Crow Taylor PA-C 06/08/17 Referrals Ketty Ballard M.D. (PCP) Patient Instructions My [facility] Additional Instructions You have been treated in the Emergency Department your Abdominal Pain. Laboratory results and imaging studies have ruled out any emergent causes for your abdominal pain which would warrant admission or surgery. You have been prescribed Oxy IR to be used for pain control. This is a narcotic medication. You cannot drive or consume alcohol while on this medicine. This medicine should only be used for pain that cannot be controlled with over-the- counter pain medicines. For pain control, you can use the following [id number] medicines (if >12 yo): - Regular strength (325mg/tab) Tylenol (acetaminophen) 2 tabs every 4-6 hours as needed. Do not exceed 12 tablets in a 24 hour period. Avoid taking more than 3 grams (3000 mg) of Tylenol per day. This includes any other sources of acetaminophen you may take on a regular basis. - Regular strength (200 mg/tab) Advil (ibuprofen) 1-2 tabs every 4-6 hours as needed. Do not exceed a dose of 3200 mg per day. Drink plenty of water and stay well hydrated. As with any trip to the Emergency Department, you should follow-up with your Primary Care Provider from today's visit. Please follow with your family doctor and [facility] for your CT scan, abdominal pain and ultrasound results. Return to the emergency department if your symptoms persist despite treatment plan outlined above or if the following symptoms occur: increased fevers, chills , worsening nausea/vomiting, blood in your stool or urine. ABD/PELVIS IV AND ORAL CONT CLINICAL HISTORY: 36 years-old Female presenting with right lower quadrant pain. TECHNIQUE: Multidetector CT of the abdomen and pelvis was performed after the administration of oral and intravenous contrast. IV contrast: 119 mL of Optiray 320. A dose lowering technique was used consistent with the principles of ALARA (as low as reasonably achievable). COMPARISON: 04/13/2016. CT DOSE (mGy.cm): The estimated cumulative dose is 2216.97 mGy.cm. 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 Lung bases: Minimal basilar opacities, likely atelectasis. Normal heart size. No pericardial or pleural effusion. Liver: Normal morphology. Focal fatty sparing or perfusional variation along the gallbladder fossa. No liver lesion. Patent hepatic vasculature. Biliary: No intrahepatic or extrahepatic biliary ductal dilatation. Gallbladder surgically absent. Pancreas: Normal. Spleen: Normal. Adrenal glands: Normal. Kidneys and ureters: Normal. No hydronephrosis. Bladder: Normal. Pelvic organs: Uterus and ovaries normal. Bowel: Normal appendix. No bowel obstruction. Peritoneal cavity: No free fluid or intraperitoneal gas. Lymph nodes: No enlarged lymph nodes in the abdomen or pelvis. Vasculature: Aorta and IVC patent and normal in caliber. Abdominal wall: Normal. Musculoskeletal: Normal. IMPRESSION: 1. No acute intra-abdominal pathology. Specifically, no appendicitis. 2. Postsurgical changes of cholecystectomy. Electronically signed by: Wood Gray M.D. 06/08/2017 6:15 PM Dictated Date/Time: 06/08/2017 6:10 PM PELVIC COMPLETE NON OB HISTORY: 36 years-old Female right pelvic pain acute right-sided pelvic pain COMPARISON: CTA 04/13/2016 TECHNIQUE: Multiple real-time sonogram images of the deep pelvic structures were obtained transabdominally and transvaginally assessing grayscale appearance, color and spectral flow. FINDINGS: TRANSABDOMINAL: Anteflexed uterus measures 10.9 x 5.4 x 7.0 cm. TRANSVAGINAL: There is a complex hypoechoic 1.3 x 0.9 x 0.8 cm lesion of the anterior cervix without internal vascularity identified. Endometrium measures 9 mm and appears homogeneous. The right ovary measures 3.5 x 3.9 x 3.1 cm and is unremarkable with arterial inflow. Cystic structure within the right ovary measures 2.1 x 2.4 x 2.1 cm suggesting dominant follicle within internal septation. The left ovary measures 3.4 x 2.0 x 2.2 cm and is unremarkable with arterial inflow documented. No significant free pelvic fluid. IMPRESSION: 1. Dominant right ovarian follicle. No evidence of ovarian torsion. 2. Complex hypoechoic 1.3 cm lesion of the cervix without internal vascularity identified is indeterminate. Differential considerations would include a complex nabothian cyst or less likely a cervical leiomyoma. 3. Normal appearance of the endometrium and left ovary. The above report was generated using voice recognition software. It may contain grammatical, syntax or spelling errors. Electronically signed by: Jatin Anton M.D. 06/08/2017 3:11 PM Dictated Date/Time: 06/08/2017 3:05 PM Problem Qualifiers
[2017-06-08] MEDS ORDERED: OXYC1TAB3 PO (18:36)
== END 2017-06-08 19:00 | disposition home or self-care (01) ==
LOC: C.EDB 10:18 → C.EDD 19:00
DX: R10.30 Lower abdominal pain, unspecified (principal); N88.9 Noninflammatory disorder of cervix uteri, unspecified; R07.9 Chest pain, unspecified; J45.909 Unspecified asthma, uncomplicated; Z90.49 Acquired absence of other specified parts of digestive tract; Z83.3 Family history of diabetes mellitus; Z82.49 Family history of ischemic heart disease and other diseases of the circulatory system; E03.9 Hypothyroidism, unspecified

== ENCOUNTER → 2017-06-19 | Outpatient (CLI) | payer OTHER ==
[~2017-06-19] MED LIST changes: +OXYC1TAB3 PO
[2017-06-19 17:10] LABS: BASO % 1.4 %; EOS % 9.4 %; EOS ABS # 0.67 K/uL (0-0.5); HEMATOCRIT 34.9 % (37-47); HEMOGLOBIN 10.9 g/dL (12.0-16.0); IG# 0.02 K/uL (0.00-0.02); LYMPH % 39.6 %; LYMPH ABS # 2.82 K/uL (1.2-3.4); MEAN CELL VOLUME 74.3 fL (80-100); MEAN CORPUSCULAR HEMOGLOBIN 23.2 pg (25-34); MEAN CORPUSCULAR HGB CONC 31.2 g/dl (32-36); MEAN PLATELET VOLUME 10.4 fL (7.4-10.4); MONO % 6.3 %; MONO ABS # 0.45 K/uL (0.11-0.59); NEUT ABS # 3.07 K/uL (1.4-6.5); PLATELET COUNT 280 K/uL (130-400); RED CELL DISTRIBUTION WIDTH CV 17.1 % (11.5-14.5); RED CELL DISTRIBUTION WIDTH SD 46.1 fL (36.4-46.3); WHITE BLOOD COUNT 7.13 K/uL (4.8-10.8)
== END | disposition home or self-care (01) ==
LOC: C.LABBFT 12:15
PROVIDERS: ATTEND Physician Assistant Medical
DX: R79.9 Abnormal finding of blood chemistry, unspecified (principal); D64.9 Anemia, unspecified; E78.5 Hyperlipidemia, unspecified

== ENCOUNTER → 2017-08-27 | Outpatient (CLI) | payer OTHER | END | disposition home or self-care (01) | LOC: C.LABSPEC 15:56 | PROVIDERS: ATTEND Physician Assistant | DX: R10.2 Pelvic and perineal pain (principal) ==

== ENCOUNTER 2017-12-22 23:38 | Emergency (ER) | payer OTHER ==
[~2017-12-22] VITALS: Ht 170.2 cm; Wt 150.6 kg
[~2017-12-22 23:38] MED LIST changes: -OXYC1TAB3 PO
[2017-12-22 23:47] VITALS: Ht 170.2 cm; Wt 150.6 kg
--- NOTE | 2017-12-23 00:02 | EMERGENCY ROOM VISIT NOTE ---
History Report prepared by Carlitos: Arvin Sierra Under the Supervision of: Dr. Anderson Kapadia M.D. First contact with patient: 23:51 Chief Complaint: CHEST PAIN Stated Complaint: CHEST PAIN,BACK PAIN,SHORT OF BREATH,COLD SWEATS History of Present Illness The patient is a 37 year old female who presents to the Emergency Room with complaints of constant chest squeezing beginning this evening. The patient states she went to [place] today for a routine ENT appointment. She reports on her way back, she started to feel odd. The patient notes she became nauseous and developed pain in her shoulder blades that radiated to her neck. She states she thought it was her GERD acting up, so she took her omeprazole. The patient reports this did not help her symptoms, so she tried taking her inhaler because she later became short of breath. She notes this did not help either, and she started to develop pain in her upper chest. The patient states she also started to sweat, yet she states she felt cold. She reports she is still having mild chest squeezing. The patient states nothing makes her symptoms better or worse. The patient notes a history of these symptoms before, and it was attributed to stress. She states a history of tolerating IV contrast and a cholecystectomy. The patient denies a history of cardiac issues, a history of blood clots, increased pain with breathing, chance of , breast feeding, and abdominal pain. Source of History: patient, family, spouse/significant other Onset: this evening Position: chest Quality: other (squeezing) Timing: constant Modifying Factors (Worsening): other (nothing) Modifying Factors (Relieving): other (nothing) Associated Symptoms: + SOB, + nausea, + back pain (shoulder blades), No abdominal pain Note: Associated symptoms: feeling cold while sweating Review of Systems See HPI for pertinent positives & negatives. A total of 10 systems reviewed and were otherwise negative. Past Medical & Surgical Medical Problems: (1) Acute abdominal pain (2) Acute abdominal pain (3) Acute sinusitis (4) Asthma (5) Asthma exacerbation (6) Asthma exacerbation (7) Cellulitis of scalp (8) Chest pain, non-cardiac (9) Cholecystectomy (10) Folliculitis (11) Foreign body of fourth finger, right (12) Gastritis (13) Gastritis (14) H. pylori infection (15) Headache (16) Headache (17) Hypothyroidism (18) Insect bite (19) Leg pain, right (20) Lower extremity pain, right (21) MORBID OBESITY (22) Musculoskeletal pain (23) Non-cardiac chest pain (24) Occipital lymphadenitis (25) Pansinusitis (26) Right leg pain (27) sinus surgery (28) Sinusitis (29) Sinusitis (30) Vomiting and diarrhea Old medical records were reviewed. Nurse's notes were reviewed and I agree with. Family History Diabetes mellitus FHx: cancer FHx: gallbladder disease Hypertension Kidney disease Social History Smoking Status: Never Smoker Alcohol Use: none Drug Use: none Marital Status: Housing Status: lives with family Occupation Status: employed Current/Historical Medications Scheduled Cetirizine Hcl (Zyrtec), 10 MG PO QAM Cholecalciferol (Vitamin D3), 2,000 CAP PO DAILY Ferrous Sulfate (Ferrous Sulfate), 325 MG PO QPM Fluticasone Propionate (Fluticasone Propionate), 2 SPRAYS INH BID Levothyroxine Sodium (Levothyroxine Sodium), 300 MCG PO QAM Levothyroxine Sodium (Levothyroxine Sodium), 50 MCG PO QAM Mometasone Furoate-Formoterol (Dulera 200/5 Mcg), 2 PUFF INH BID Montelukast Sod (Montelukast Sodium), 10 MG PO HS Omeprazole (Prilosec), 20 MG PO QAM Tiotropium [place] (Spiriva Respimat), 1 PUFF INH DAILY Scheduled PRN Acetaminophen (Tylenol), 1,000 MG PO Q4H PRN for Pain or Fever Albuterol Hfa (Ventolin Hfa), 2 PUFFS INH QID PRN for Asthma Symptoms Albuterol Sulf (Proventil 0.083% 2.5MG/3ML), 3 ML NEB QID PRN for SOB/Wheezing Allergies Coded Allergies: Aspirin (Verified Allergy, Severe, ASTHMA ATTACK, 12/23/17) Ibuprofen (Verified Allergy, Severe, ASTHMA ATTACK, 12/23/17) Levofloxacin (Verified Allergy, Intermediate, body aches and pain, 12/23/17 ) Prochlorperazine (Verified Allergy, Intermediate, Agitated, itchy, hot, ) Tramadol (Verified Adverse Reaction, Unknown, Nausea/Vomiting, 8/22/18) Reported by PT. Physical Exam Vital Signs Date Time Temp Pulse Resp B/P (MAP) Pulse Ox O2 Delivery O2 Flow Rate FiO2 12/23/17 02:11 69 18 117/67 97 12/23/17 01:10 67 18 116/62 96 Room Air 12/23/17 00:05 68 12/23/17 00:04 Room Air 12/22/17 23:47 36.5 72 20 141/91 97 Room Air Physical Exam General: Non-ill appearing younger female in no acute distress. HEENT: Normal cephalic atraumatic. Pupils are equal round and reactive to light. Extraocular movements are intact. Oropharynx is pink with moist mucous membranes. No swelling of the mouth lips or tongue. Neck: Supple with a midline trachea. No meningeal signs or stiffness, no JVD or bruits. No Stridor. Chest: Clear to auscultation bilaterally. No wheezes or rhonchi. No increased work of breathing. Heart: regular rate and rhythm. Abdomen: Soft nontender, nondistended without rebound guarding or rigidity. Extremities: No cyanosis clubbing or edema. No calf tenderness or assymetry Spine/Back. Non tender to palpation. No CVA tenderness Skin: Good turgor without rashes. Neurologic exam: Cranial nerves two through 12 are intact. Motor and sensation are intact and symmetrical throughout. Medical Decision & Procedures ER Provider Diagnostic Interpretation: Chest x-ray per my interpretation reveals no pneumothorax, failure, or infiltrate. Radiology results as stated below per my review and [facility] radiologist interpretation: CTA CHEST: Comparison 04/13/16 No visualized pulmonary embolus. No significant effusion or pneumothorax. No airspace consolidation. Mild mosaic attenuation of the lungs is likely related to the air trapping. Hepatic steatosis. Radiologist: Ata Mccoy MD Study ready at 0129 and initial results transmitted at 0151. Laboratory Results 12/23/17 00:04 Red Blood Count 4.89, Mean Corpuscular Volume 83.2, Mean Corpuscular Hemoglobin 28.2, Mean Corpuscular Hemoglobin Concent 33.9, Mean Platelet Volume 10.9, Neutrophils (%) (Auto) 53.6, Lymphocytes (%) (Auto) 37.8, Monocytes (%) (Auto) 6.8, Eosinophils (%) (Auto) 1.2, Basophils (%) (Auto) 0.4, Neutrophils # (Auto) 6.72, Lymphocytes # (Auto) 4.74, Monocytes # (Auto) 0.85, Eosinophils # (Auto) 0.15, Basophils # (Auto) 0.05 12/23/17 00:04 Test 12/23/17 00:04 12/23/17 00:13 White Blood Count 12.54 K/uL (4.8-10.8) Red Blood Count 4.89 M/uL (4.2-5.4) Hemoglobin 13.8 g/dL (12.0-16.0) Hematocrit 40.7 % (37-47) Mean Corpuscular Volume 83.2 fL (80-100) Mean Corpuscular Hemoglobin 28.2 pg (25-34) Mean Corpuscular Hemoglobin Concent 33.9 g/dl (32-36) Platelet Count 290 K/uL (130-400) Mean Platelet Volume 10.9 fL (7.4-10.4) Neutrophils (%) (Auto) 53.6 % Lymphocytes (%) (Auto) 37.8 % Monocytes (%) (Auto) 6.8 % Eosinophils (%) (Auto) 1.2 % Basophils (%) (Auto) 0.4 % Neutrophils # (Auto) 6.72 K/uL (1.4-6.5) Lymphocytes # (Auto) 4.74 K/uL (1.2-3.4) Monocytes # (Auto) 0.85 K/uL (0.11-0.59) Eosinophils # (Auto) 0.15 K/uL (0-0.5) Basophils # (Auto) 0.05 K/uL (0-0.2) RDW Standard Deviation 44.4 fL (36.4-46.3) RDW Coefficient of Variation 14.5 % (11.5-14.5) Immature Granulocyte % (Auto) 0.2 % Immature Granulocyte # (Auto) 0.03 K/uL (0.00-0.02) D-Dimer 1040 ug/L FEU (0-500) Anion Gap 8.0 mmol/L (3-11) Est Creatinine Clear Calc Drug Dose 93.4 ml/min Estimated GFR () 62.1 Estimated GFR (Non- 53.6 BUN/Creatinine Ratio 11.2 (10-20) Calcium Level 9.0 mg/dl (8.5-10.1) Total Bilirubin 0.4 mg/dl (0.2-1) Direct Bilirubin < 0.1 mg/dl (0-0.2) Aspartate Amino Transf (AST/SGOT) 21 U/L (15-37) Alanine Aminotransferase (ALT/SGPT) 32 U/L (12-78) Alkaline Phosphatase 70 U/L (45-117) Total Protein 7.6 gm/dl (6.4-8.2) Albumin 3.5 gm/dl (3.4-5.0) Lipase 149 U/L (73-393) Human Chorionic Gonadotropin, Qual NEG (NEG) Bedside Troponin I 0.030 ng/ml (0-0.045) Laboratory studies as stated above per my review. Medications Administered Medications (Trade) Dose Ordered Sig/Zaida Route Start Time Stop Time Status Last Admin Dose Admin Al Hydroxide/Mg Hydroxide (Maalox Susp) 30 ml NOW STAT PO 12/23/17 00:24 12/23/17 00:25 DC 12/23/17 00:32 30 ML Lidocaine HCl (Viscous Lidocaine 2% Soln) 10 ml NOW STAT MT 12/23/17 00:24 12/23/17 00:25 DC 12/23/17 00:32 10 ML Morphine Sulfate (MoRPHine SULFATE INJ) 4 mg NOW STAT IV 12/23/17 00:47 12/23/17 00:48 DC 12/23/17 01:07 4 MG Ondansetron HCl (Zofran Inj) 4 mg NOW STAT IV 12/23/17 00:47 12/23/17 00:48 DC 12/23/17 01:07 4 MG ECG Per My Interpretation Indication: chest pain Rate (beats per minute): 68 Rhythm: normal sinus Findings: no acute ischemic change, no ectopy Comparison ECG Date: 06/08/2017 Change: no significant change ED Course 2355: Past medical records reviewed. The patient was evaluated in room A10, and a complete history and physical examination were performed. 0018: I reevaluated the patient. She is willing to try a GI cocktail. 0024: Ordered Lidocaine HCl 10ml MT, Maalox Susp 30ml PO 0047: Ordered Ondansetron HCl 4mg IV, Morphine Sulfate 4mg IV 0049: The patient has not had relief with the GI cocktail. I ordered an x-ray and CT scan. 0158: Upon reevaluation, the patient is feeling better and would like to go home. She states she has been under a large amount of stress recently. I discussed the results and treatment plan with her. She verbalized agreement of the treatment plan. The patient was discharged home. Medical Decision Differentials include, but are not limited to; GERD, cardiac disease, pneumothorax, PE, anxiety, aortic disease, electrolyte or metabolic abnormality. This patient comes in as described above. She was placed in room A-10. She had episode of chest pain as well as nausea. She has a history of GERD as well as anxiety. No cardiac history or pulmonary history besides asthma. No history of PE. She looks well on exam EKG was obtained and does not show any acute ischemic changes or ectopy. Chest x-ray was unremarkable. She was given a GI cocktail which did not help. She is not driving. Her troponin is not elevated. She has no acute electrolyte or metabolic abnormality. she was nothing to suggest anemia or infection. Her d-dimer was elevated at just over thousand in light of this I did a chest CT to rule out PE and other intrathoracic pathology. She was given morphine 4 mg IV and Zofran 4mg IV. CAT scan of her chest was unremarkable. She is feeling better and up to going home. She has nothing to suggest cardiac disease this may be more GI or anxiety related she has had symptoms like this before I recommend follow-up with regular doctor return to the ER if : increasing pain, worsening of symptoms , shortness breath, any new problems or concerns. She is happy the plan and discharged to home. Medication Reconcilliation Current Medication List: was personally reviewed by me Blood Pressure Screening Patient's blood pressure: Elevated blood pressure Blood pressure disposition: Elevated BP felt to be situational Impression Primary Impression: Chest pain Additional Impression: Substernal precordial chest pain Scribe Attestation The scribe's documentation has been prepared under my direction and personally reviewed by me in its entirety. I confirm that the note above accurately reflects all work, treatment, procedures, and medical decision making performed by me. Departure Information Dispostion Home / Self-Care Referrals Ketty Ballard M.D. (PCP) Forms Call Back Authorization, HOME CARE DOCUMENTATION FORM, IMPORTANT VISIT INFORMATION Patient Instructions My [facility] Additional Instructions Rest. Return if: Increasing pain, worsening of symptoms, shortness of breath, fever or chills, any new problems or concerns Follow-up with your doctor in 1-2 days for recheck. Problem Qualifiers
[2017-12-23 00:19] LABS: BASO % 0.4 %; BASO ABS # 0.05 K/uL (0-0.2); EOS % 1.2 %; EOS ABS # 0.15 K/uL (0-0.5); HEMATOCRIT 40.7 % (37-47); HEMOGLOBIN 13.8 g/dL (12.0-16.0); IG# 0.03 K/uL (0.00-0.02); LYMPH % 37.8 %; LYMPH ABS # 4.74 K/uL (1.2-3.4); MEAN CELL VOLUME 83.2 fL (80-100); MEAN CORPUSCULAR HEMOGLOBIN 28.2 pg (25-34); MEAN CORPUSCULAR HGB CONC 33.9 g/dl (32-36); MEAN PLATELET VOLUME 10.9 fL (7.4-10.4); MONO % 6.8 %; MONO ABS # 0.85 K/uL (0.11-0.59); NEUT % 53.6 %; NEUT ABS # 6.72 K/uL (1.4-6.5); PLATELET COUNT 290 K/uL (130-400); RED CELL DISTRIBUTION WIDTH CV 14.5 % (11.5-14.5); RED CELL DISTRIBUTION WIDTH SD 44.4 fL (36.4-46.3); WHITE BLOOD COUNT 12.54 K/uL (4.8-10.8)
[2017-12-23] MEDS ORDERED: LIDOCAINE HCL 2% VISC SOLN 20 ML UDC MT STA (00:24)
[2017-12-23] MEDS ORDERED: ALUMINUM/MAGNESIUM SUSP 30 ML UDC PO STA (00:24)
[2017-12-23 00:44] LABS: ALBUMIN 3.5 gm/dl (3.4-5.0); ALKALINE PHOSPHATASE 70 U/L (45-117); ALT/SGPT 32 U/L (12-78); AST/SGOT 21 U/L (15-37); BLOOD UREA NITROGEN 14 mg/dl (7-18); CARBON DIOXIDE 26 mmol/L (21-32); CREATININE 1.29 mg/dl (0.60-1.20); GLUCOSE 108 mg/dl (70-99); LIPASE 149 U/L (73-393); POTASSIUM 3.9 mmol/L (3.5-5.1); SODIUM 139 mmol/L (136-145); TOTAL PROTEIN 7.6 gm/dl (6.4-8.2)
[2017-12-23] MEDS ORDERED: ONDANSETRON INJ 2 MG/ML 2 ML VIAL IV STA (00:47)
[2017-12-23] MEDS ORDERED: MoRPHine SULFATE 4 MG/ML 1 ML CARP\\VIAL IV STA (00:47)
[2017-12-23] MEDS ORDERED: OPTIRAY 320 IV PRN (01:00)
[2017-12-23 02:11] VITALS: BP 117/67; PULSE 69; O2SAT 97
--- NOTE | 2017-12-23 06:45 | DIAGNOSTIC IMAGING REPORT ---
CHEST ONE VIEW PORTABLE HISTORY: 37 years-old Female CHEST PAIN acute atypical chest pain COMPARISON: Chest radiograph 11/26/2016, CTA chest 12/23/2017 TECHNIQUE: Portable AP view of the chest FINDINGS: Cardiomediastinal and hilar silhouettes are within normal limits. There is no pneumothorax, pleural effusion, overt pulmonary edema or focal airspace consolidation. Bones of the chest appear intact. IMPRESSION: No acute process. The above report was generated using voice recognition software. It may contain grammatical, syntax or spelling errors. Electronically signed by: Jatin Anton M.D. 12/23/2017 6:44 AM Dictated Date/Time: 12/23/2017 6:43 AM
--- NOTE | 2017-12-23 06:48 | DIAGNOSTIC IMAGING REPORT ---
CT ANGIOGRAPHY OF THE CHEST, PULMONARY EMBOLUS PROTOCOL CLINICAL HISTORY: Shortness of breath, back pain and chest pain. COMPARISON STUDY: Chest CT January 18, 2015 18 and chest radiograph December 23, 2017. TECHNIQUE: Following IV administration of 117 mL of Optiray-320, helical axial images of the chest were obtained utilizing the pulmonary embolus protocol. Maximal intensity projections and sagittal and coronal reformats were viewed on an independent 3D workstation. IV contrast was administered without complication. A dose lowering technique was utilized adhering to the principles of ALARA. CT DOSE: 820.76 mGy.cm FINDINGS: No pulmonary emboli are identified. There is no evidence for thoracic aortic dissection. Size of the heart is at the upper limits of normal. No enlarged axillary, mediastinal or hilar lymph nodes are present. Central airways are patent. There is no consolidation. There is mild mosaic attenuation within the lungs. No pneumothorax or pleural effusion is noted. Bony thorax is unremarkable. Probable fatty infiltration of the liver is noted. IMPRESSION: 1. No pulmonary emboli identified. 2. No consolidation to suggest pneumonia. 3. Mosaic attenuation within the lungs suggestive of air trapping. 4. Probable fatty infiltration of the liver. Electronically signed by: Darren Ballard M.D. 12/23/2017 6:47 AM Dictated Date/Time: 12/23/2017 6:43 AM
== END 2017-12-23 02:11 | disposition home or self-care (01) ==
LOC: C.EDB 23:39 → C.EDA 12-23 02:11
DX: R07.2 Precordial pain (principal); K21.9 Gastro-esophageal reflux disease without esophagitis; Z90.49 Acquired absence of other specified parts of digestive tract; E03.9 Hypothyroidism, unspecified; E66.01 Morbid (severe) obesity due to excess calories; Z83.3 Family history of diabetes mellitus; Z80.9 Family history of malignant neoplasm, unspecified; Z83.79 Family history of other diseases of the digestive system; Z82.49 Family history of ischemic heart disease and other diseases of the circulatory system; Z84.1 Family history of disorders of kidney and ureter; Z79.899 Other long term (current) drug therapy; Z88.6 Allergy status to analgesic agent; Z88.1 Allergy status to other antibiotic agents; Z88.8 Allergy status to other drugs, medicaments and biological substances

== ENCOUNTER 2020-03-01 02:19 | Inpatient (IN) ==
[2020-03-01] MEDS ORDERED: LACTATED RINGER'S 1,000 ML IV PRN (02:37)
[2020-03-01] MEDS ORDERED: ALBUTEROL HFA 8 GM INHALER INH PRN ×2 (02:40→06:09)
--- NOTE | 2020-03-01 02:45 | History & Physical Report ---
Date of Service March 01, 2020 Assessment & Plan (1) Normal labor: Admission and Anticipated Discharge Date Admission Date: Grand multiparous patient - IUP at 36 5/7 weeks with SPROM (thin mec) and active labor with multiple medical co-morbidities check BSG now epidural is desired by patient anticipate vaginal History of Present Illness Primary Care Provider: Ketty Ballard MD Patient is a 39 yo white female who presents at 37 weeks with SPROM . contractions are 3-5 minutes apart. GBS negative. COVID pending. complicated by GDM on insulin, asthma, morbid obesity ,chronic hypertension for which she is not on any meds currently, and Anthony's thyroiditis. Allergies Allergy/AdvReac Type Severity Reaction Status Date / Time aspirin Allergy Severe ASTHMA Verified 02/27/20 14:24 ATTACK ibuprofen Allergy Severe ASTHMA Verified 02/27/20 14:24 ATTACK levofloxacin Allergy Intermediate body aches Verified 02/27/20 14:24 and pain prochlorperazine Allergy Intermediate Agitated, Verified 02/27/20 14:24 itchy, hot atorvastatin AdvReac Intermediate Dizziness Verified 02/27/20 14:24 tramadol AdvReac Intermediate Nausea/Vomi Verified 02/27/20 14:24 ting Home Medications Home Medications Medication Instructions Recorded Confirmed Type Dulera 2 puff INHALATION BID 01/22/18 02/27/20 History acetaminophen 1,000 mg PO Q6H PRN 01/22/18 02/27/20 History cholecalciferol (vitamin D3) 2,000 units PO HS 01/22/18 02/27/20 History [Vitamin D3] fluticasone propionate [Flonase 1 spray INTRANASAL HS 06/11/18 02/27/20 History Allergy Relief] montelukast 10 mg tablet 10 mg PO HS #90 tab 12/06/18 02/27/20 Rx albuterol sulfate 2 puff INHALATION QID PRN 04/10/19 02/27/20 History esomeprazole magnesium 40 mg PO QAM 06/04/19 02/27/20 History acetone (urine) test #50 ea 11/04/19 02/27/20 Rx blood sugar diagnostic #150 ea 11/04/19 02/27/20 Rx blood-glucose meter #1 ea 11/04/19 02/27/20 Rx lancets 33 gauge #150 ea 11/04/19 02/27/20 Rx cetirizine 10 mg capsule 10 mg PO QAM #30 cap 12/22/19 02/27/20 Rx prenat.vits,delilah,cpg-hort-jhbed 1 tab PO DAILY #30 tab 01/31/20 02/27/20 Rx pen needle, diabetic 32 gauge x #150 ea 02/05/20 02/27/20 Rx 5/32" sertraline 50 mg tablet See Rx Instructions .ROUTE 02/14/20 02/27/20 Rx .COMPLEX #30 tab insulin aspart U-100 [Novolog 5 unit SUBCUT TID 02/23/20 02/27/20 History Flexpen U-100 Insulin] levothyroxine 300 mcg PO DAILY 02/23/20 02/27/20 History Patient History Medical History (Updated 03/01/20 @ 02:48 by Radha Stephens MD, FACOG) Acute sinusitis (11/08/12) Anxiety Asthma PRN Inhalers Asthmatic bronchitis Carpal tunnel syndrome, bilateral Cellulitis of scalp Chronic back pain Chronic hypertension No medications Cyst of right ovary Gastritis GERD (gastroesophageal reflux disease) Gestational diabetes Insulin-Controlled H. pylori infection Anthony's thyroiditis History of chicken pox Hypothyroid in , antepartum Hypothyroidism Iron deficiency anemia Lesion of cervix Lumbar contusion Morbid obesity Nausea and vomiting after administration of anesthetic agent Occipital lymphadenitis Osteoarthritis Ovarian cyst Pneumonia Renal insufficiency Renal pelvis enlarged on ultrasound Enlarged renal pelvis of fetus - [facility] Consult Sinusitis (spontaneous vaginal delivery) X 6 Thyroid disorder Tubular adenoma of colon Viral URI Vitamin D deficiency Wheezing Surgical History History of colonoscopy (10/2016) History of endoscopic sinus surgery x5 History of esophagogastroduodenoscopy (EGD) (06/2018) History of removal of cyst right wrist History of tooth extraction History of wisdom tooth extraction Hx of cholecystectomy S/P foot surgery, left removal of a nail Family History Mother Family history of diabetes mellitus Hypothyroid Father Family history of diabetes mellitus Hypertension Sister Family hx of colon cancer Other No family history of adverse response to anesthesia Social History Smoking Status: Former smoker Second Hand Exposure: Yes (parents smoked); Hx Alcohol Use: Yes Alcohol type: beer, wine and hard liquor Hx Substance Use: No Preferred Language: Kittitian Communication Ability: Effective Systems Project Manager Required: No Beliefs That Will Affect Care: None marital status: marital status details: Kari Mcnally (40) [phone] Current Living Situation: Spouse Current Living Situation Comment: Lives with , her kids, and 's grandmother current occupational status: unemployed 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 Feels Safe at Home: Yes Assistive Devices: Glasses Physical Exam Constitutional: WD/WN, vitals as above Respiratory: normal respiratory effort, lungs clear to auscultation Cardiovascular: RRR, no murmur, no edema Gastrointestinal (Abdomen): normal bowel sounds, soft, nontender, no hepatosplenomegaly Psychiatric: A+Ox3, euthymic affect Genitourinary: OB Exam Abdomen: + vertex Manual OB Exam: + cervical dilation (per nurse's exam) 7 cm and + amniotic fluid meconium (thin) OB Exam Monitor Tracing: + external FHT monitor used, + external uterine monitor used, + category I and + normal FHT variability Results & Data ([facility]) Vital Signs (Past 12 Hours) Vital Signs Pulse BP 03/01/20 02:40 85 176/81 H Code Status & VTE Plan VTE Prophylaxis Plan VTE Prophylaxis will be ordered: No Coding Level of Care Code None Diagnoses Normal labor O80; Z37.9
[2020-03-01 03:02] LABS: Hematocrit (blood only) 37.7 % (37-47); Hemoglobin 12.7 g/dL (12.0-16.0); Mean Corpuscular Hemoglobin 28.7 pg (25-34); Mean Corpuscular Volume 85.1 fL (80-100); Mean Platelet Volume 11.8 fL (7.4-10.4); Platelet Count 147 K/uL (130-400); RDW Coefficient of Variation 16.1 % (11.5-14.5); Red Blood Count 4.43 M/uL (4.2-5.4); White Blood Count 9.03 K/uL (4.8-10.8)
[2020-03-01 03:14] LABS: Mean Corpuscular Hgb Conc 33.7 g/dL (32-36)
[2020-03-01] MEDS ORDERED: LIDOCAINE HCL 1% 20 ML VIAL ONE (03:49)
[2020-03-01] MEDS: OXYTOCIN 30 UNITS/500 ML BAG IV PRN ×2 (05:33→06:34)
[2020-03-01] MEDS ORDERED: OXYTOCIN 30 UNITS/500 ML BAG IV PRN (05:47)
[2020-03-01] MEDS ORDERED: SUPERCREAM 0.870% 15 GM JAR EXT PRN (05:47)
[2020-03-01] MEDS ORDERED: HYDROCORTISONE ACETATE 25 MG SUPP PR PRN (05:47)
[2020-03-01] MEDS ORDERED: bisacodyL 10 MG SUPP PR PRN (05:47)
[2020-03-01] MEDS ORDERED: DIPHTHERIA/TETANUS/PERTUSSIS 0.5 ML SYR/VIAL IM ONE (05:47)
[2020-03-01] MEDS ORDERED: BENZOCAINE 20% AER SPR 82.5 GM CAN EXT PRN (05:47)
[2020-03-01] MEDS ORDERED: ACETAMINOPHEN 325 MG TAB PO PRN (05:47)
--- NOTE | 2020-03-01 06:25 | Delivery Summary ---
Vaginal Delivery Summary Date of Service March 01, 2020 Patient is a 39-year-old 7 para 6-0-0-6 white female who presents at 36- 5/7 weeks with regular contractions starting at 1 am and spontaneous rupture of membranes at approximately 2am. The fluid was meconium stained but thin. She presented to labor and delivery at 7 cm dilated- she progressed to full dilation and and had a strong urge to push. She delivered a viable male over intact perineum. The infant was vigorous and crying at . The infant was placed on the mother's abdomen for further attention and drying. The cord was clamped and cut after 1 minute. After obtaining cord blood, the placenta was expressed intact with a three-vessel cord. Perineum was intact. Estimated blood loss was 200 cc. bleeding was controlled with dilute Pitocin. Mother and were doing well after delivery. [facility] Vaginal Delivery Charge Vaginal Delivery Codes: 70895 global code for the antepartum, delivery, and post-
[2020-03-01] MEDS ORDERED: Nursing to Pharmacy Communication SCH (06:30)
[2020-03-01] MEDS: oxyCODONE/ACETAMINOPHEN 5mg/325mg TAB PO PRN ×3 (06:31→20:49)
[2020-03-01] MEDS: LEVOTHYROXINE SODIUM 150 MCG TABLET PO SCH (06:53)
[2020-03-01] MEDS: LEVOTHYROXINE SODIUM 50 MCG TABLET PO SCH (06:53)
[2020-03-01] MEDS: DOCUSATE SODIUM 100 MG CAP PO SCH ×2 (08:58→20:49)
[2020-03-01] MEDS: FLUTICASONE/VILANTEROL 100/25MCG 14 PUFFS/INHALER INH SCH (08:58)
[2020-03-01] MEDS: PRENATAL VITAMIN 1 TAB PO SCH (08:58)
[2020-03-01] MEDS ORDERED: SERTRALINE HCL 50 MG TABLET PO SCH ×2 (09:00)
[2020-03-01] MEDS ORDERED: MONTELUKAST SODIUM 10 MG TABLET PO SCH ×2 (21:00)
[2020-03-02] MEDS: oxyCODONE/ACETAMINOPHEN 5mg/325mg TAB PO PRN ×2 (03:48→12:25)
[2020-03-02 06:01] LABS: Hematocrit (blood only) 37.2 % (37-47); Hemoglobin 12.3 g/dL (12.0-16.0); Mean Corpuscular Hemoglobin 28.4 pg (25-34); Mean Corpuscular Hgb Conc 33.1 g/dL (32-36); Mean Corpuscular Volume 85.9 fL (80-100); Mean Platelet Volume 11.9 fL (7.4-10.4); Platelet Count 141 K/uL (130-400); RDW Coefficient of Variation 16.4 % (11.5-14.5); RDW Standard Deviation 51.6 fL (36.4-46.3); Red Blood Count 4.33 M/uL (4.2-5.4); White Blood Count 9.44 K/uL (4.8-10.8)
[2020-03-02] MEDS: LEVOTHYROXINE SODIUM 150 MCG TABLET PO SCH (06:04)
[2020-03-02] MEDS: LEVOTHYROXINE SODIUM 50 MCG TABLET PO SCH (06:04)
--- NOTE | 2020-03-02 06:04 | Obstetrical Progress Note ---
Date of Service <Doni Spangler MD - Last Filed: 03/02/20 06:48> March 02, 2020 Assessment & Plan <Doni Spangler MD - Last Filed: 03/02/20 06:48> (1) : - PNL: Rh neg (received rhogam), RI, GBS neg, COVID neg - Feels well today. Eating well, voiding well, ambulating well - Pain well controlled with ibuprofen 600mg Q4H PRN - Blood sugars well controlled currently - Routine care -- OOB, ambulation, diet progression as tolerated - After discharge will have 6 week follow-up with Dr. Mims - Will monitor BPs this AM and plan for discharge in the afternoon if well controlled Day #:: 1 Subjective <Doni Spangler MD - Last Filed: 03/02/20 06:48> Mustapha is a 39 y/o female who is PPD #1 following at 37 weeks. She reports feeling well overall this morning. Light abdominal cramping and 5/10 pain well managed on analgesics. Voiding well. Tolerating meals overnight without difficulty. Patient has been able to ambulate some. Has persistent lochia with some improvement this morning. Currently bottle feeding. Review of Systems Denies fever or chills. Denies shortness of breath or cough. Denies chest pain. Denies breast pain. Denies dysuria. Denies leg pain or leg swelling. Denies headache or changes in vision. Physical Exam <Doni Spangler MD - Last Filed: 03/02/20 06:48> General: Alert, oriented. No acute distress. Cardiac: Regular rate and rhythm. No murmurs. Respiratory: Clear to auscultation bilaterally a/p, no wheezes/rales/rhonchi. No increased work of breathing. Symmetrical chest rise. No respiratory distress. Abdomen: Soft, nontender, nondistended. Bowel sounds present. Uterus: Uterine fundus firm, palpable 2 cm below umbilicus. Lower Extremities: No lower extremity edema or swelling. No deep calf pain. Domingo's negative bilaterally. Results & Data ([facility]) <Doni Spangler MD - Last Filed: 03/02/20 06:48> Vital Signs (Past 12 Hours) Vital Signs Temp Pulse Resp BP Pulse Ox 03/02/20 05:00 36.9 C 84 17 125/85 97 03/02/20 00:15 36.5 C 77 18 128/85 98 03/01/20 19:53 36.7 C 66 20 120/78 97 <Tawanna Ferro MD - Last Filed: 03/02/20 07:29> Co-Signing Physician Notes Resident Physician Supervision Note: I interviewed and examined the patient. Discussed with Dr. Bhatti and agree with findings and plan as documented in the note. Any exceptions or clarifications are listed here: PP1 s/p , c/b cHTN, GDM, hypothyroid, asthma, grandmultiparity. Meeting all milestones, doing well. Desires d/c home today, will monitor BPs throughout day and d/c home this afternoon if still stable Documented By: Tawanna Ferro MD Resident Activity Tracking <Doni Spangler MD - Last Filed: 03/02/20 06:48> Resident Involvement: Resident Care Provided Care Provided: OB Delivery
[2020-03-02] MEDS: DOCUSATE SODIUM 100 MG CAP PO SCH (08:03)
[2020-03-02] MEDS: PRENATAL VITAMIN 1 TAB PO SCH (08:03)
[2020-03-02] MEDS: FLUTICASONE/VILANTEROL 100/25MCG 14 PUFFS/INHALER INH SCH (08:58)
[2020-03-02] MEDS ORDERED: bisacodyL 5 MG TABEC PO SCH (20:00)
[2020-03-08] MEDS ORDERED: SERTRALINE HCL 50 MG TABLET PO SCH (09:00)
--- NOTE | 2020-03-14 09:37 | Coding Query ---
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 Please assist us with the question(s) below: Coding Question(s): There is documentation of at 36-5/7 weeks and documentation of at 37 weeks. Due to conflicting documentation, please clarify below. ( ) at 36-5/7 weeks ( ) at 37 weeks (x ) Other: Please Specify____37 5/7 weeks Physician's Response(s): Thank you Doris Machuca Principal Diagnosis: "that condition established after study, to be chiefly responsible for occasioning the admission of the patient to the hospital for care." Co-Existing Principal Diagnosis: "when two or more diagnoses equally meet the criteria for principal diagnosis as determined by the circumstances of admission, diagnostic work up, and/or therapy provided, and the Alphabetic Index, Tabular List, or another coding guideline does not provide sequencing direction, any one of the diagnoses may be sequenced first." "When the physician has documented what appears to be a current diagnosis in the body of the record, but has not included the diagnosis in the final diagnostic statement, the physician should be asked whether the diagnosis should be added." (Source [facility] 2 QTR90. p3-4) MTDD
== END 2020-03-02 14:38 | disposition home or self-care (01) | DRG 806 ==
LOC: OPB 02:19 → 4S1 02:22 → 4S2 08:00